=== PATIENT | female | born 1950 | race African-American/Black ===

== ENCOUNTER 2018-03-09 19:26 | Emergency (ER) | payer MEDICARE, OTHER ==
[~2018-03-09] VITALS: Ht 152.4 cm; Wt 85.7 kg
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
[2018-03-09 19:44] VITALS: BP 118/77
[2018-03-09] MEDS ORDERED: OXYC-323 PO (19:59)
[2018-03-09] MEDS ORDERED: oxyCODONE/APAP 5/325 1 TAB TABLET PO ONE (20:00)
[2018-03-09] MEDS ORDERED: TETANUS AND DIPHTHERIA TOX/PF 0.5 ML VIAL. VAX IM ONE (20:00)
== END 2018-03-09 20:15 | disposition home or self-care (01) ==
LOC: ER 19:26
DX: S50.311A Abrasion of right elbow, initial encounter (principal); F41.9 Anxiety disorder, unspecified; J44.9 Chronic obstructive pulmonary disease, unspecified; F32.9 Major depressive disorder, single episode, unspecified; F17.210 Nicotine dependence, cigarettes, uncomplicated; Z76.0 Encounter for issue of repeat prescription; W01.198A Fall on same level from slipping, tripping and stumbling with subsequent striking against other object, initial encounter; Y93.89 Activity, other specified; Y92.89 Other specified places as the place of occurrence of the external cause; Y99.8 Other external cause status
CPT/HCPCS: 90471; 90714; 99283-25

== ENCOUNTER → 2018-04-02 | Outpatient (CLI) | payer MEDICARE, OTHER ==
[2018-03-09 19:44] VITALS: BP 118/77
[~2018-04-02] MED LIST: OXYC-323 PO
--- NOTE | 2018-04-02 15:09 | RAD ---
3 views of the right fifth finger for history of injury, fracture. FINDINGS: There is a fracture dislocation of the fifth proximal interphalangeal joint, with anterior displacement and foreshortening of the middle phalanx. Dorsal avulsion fragment of the middle phalanx is displaced dorsally. IMPRESSION: 1. Fracture dislocation of the fifth proximal interphalangeal joint as described Electronically signed by: Bon Cornelius MD (04/02/2018 3:06 PM) [id number]
== END | disposition home or self-care (01) ==
LOC: RAD 12:03
PROVIDERS: ATTEND General Practice
DX: S62.626A Displaced fracture of middle phalanx of right little finger, initial encounter for closed fracture (principal); X58.XXXA Exposure to other specified factors, initial encounter; Y93.89 Activity, other specified; Y92.89 Other specified places as the place of occurrence of the external cause; Y99.8 Other external cause status
CPT/HCPCS: 73140

== ENCOUNTER 2018-08-25 05:10 | Emergency (ER) | payer OTHER ==
[~2018-08-25] VITALS: Ht 157.5 cm; Wt 79.4 kg
[~2018-08-25 05:10] MED LIST changes: -OXYC-323 PO; +OXYC1TAB15 PO
[2018-08-25 05:22] VITALS: BP 109/61
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
[2018-08-25] MEDS ORDERED: KETOROLAC TROMETHAMINE 0.5% OPHTH SOLUTION 3ML BOTTLE. OU ONE (05:45)
[2018-08-25] MEDS ORDERED: ERYTHROMYCIN 0.5% OPHTH OINTMENT 1GM TUBE. OU ONE (05:45)
[2018-08-25] MEDS ORDERED: HYDROcodon/IBUPROFEN 7.5/200MG 1 TAB TABLET PO ONE (05:45)
[2018-08-25] MEDS ORDERED: FLUORESCEIN 1MG EYE STRIP. OU ONE (05:45)
[2018-08-25] MEDS ORDERED: TETRACAINE 0.5% OPHTH SOLUTION 4ML BOTTLE. OU ONE (05:45)
[2018-08-25] MEDS ORDERED: DIPHTH,PERTUSS(ACELL),TET TOX 0.5 ML DISP.SYRIN. VAX IM ONE (05:45)
[2018-08-25] MEDS ORDERED: KETOROLAC 30 MG/ML VIAL. IM ONE (06:00)
[2018-08-25] MEDS ORDERED: ORPHENADRINE CITRATE 60 MG/2 ML VIAL. IM ONE (06:00)
== END 2018-08-25 06:58 | disposition home or self-care (01) ==
LOC: ER 05:10
DX: G89.29 Other chronic pain (principal); M54.89 Other dorsalgia; H54.62 Unqualified visual loss, left eye, normal vision right eye; F41.9 Anxiety disorder, unspecified; J44.9 Chronic obstructive pulmonary disease, unspecified; F17.210 Nicotine dependence, cigarettes, uncomplicated
CPT/HCPCS: 96372; 99284; J1885; J2360

== ENCOUNTER 2018-09-22 01:11 | Emergency (ER) | payer OTHER ==
[~2018-09-22] VITALS: Ht 157.5 cm; Wt 79.4 kg
[2018-09-22 01:11] VITALS: BP 109/61
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
== END 2018-09-22 01:48 | disposition home or self-care (01) ==
LOC: ER 01:11
DX: G89.29 Other chronic pain (principal); M54.89 Other dorsalgia; F41.9 Anxiety disorder, unspecified; J44.9 Chronic obstructive pulmonary disease, unspecified; Z76.5 Malingerer [conscious simulation]; G43.909 Migraine, unspecified, not intractable, without status migrainosus; F17.210 Nicotine dependence, cigarettes, uncomplicated
CPT/HCPCS: 99284

== ENCOUNTER 2018-12-05 14:44 | Emergency (ER) | payer OTHER ==
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
--- NOTE | 2018-12-05 15:54 | RAD ---
LUMBAR SPINE 2-3V History: Fall Comparison: October 28, 2018 Findings: 3 views lumbar spine are submitted. There is again mild superior lumbar dextroscoliosis. Lumbar vertebral body stature and AP alignment are similar. There is facet degenerative change greater inferiorly of the lumbar spine. There is mild degenerative disc disease at L5-S1. No acute osseous abnormality is identified by radiographs. Impression: 1. No acute osseous abnormality is identified by radiographs. Electronically signed by: Nader Sauceda MD (12/05/2018 3:51 PM) [id number]
--- NOTE | 2018-12-05 15:56 | RAD ---
THORACIC SPINE 3V History: Fall Comparison: None. Findings: 3 views of the thoracic spine are submitted. There is superior compression deformity of thoracic vertebral bodies likely T6, T5, T4 and questionably of the inferior aspect of T3. There is accentuation of thoracic kyphosis. Impression: 1. There is multilevel mid thoracic compression deformity. There are no previous exams for change, could be more recent. Electronically signed by: Nader Sauceda MD (12/05/2018 3:53 PM) [id number]
--- NOTE | 2018-12-05 16:37 | RAD ---
CT THORACIC SPINE WO CONTRAST Indication: Compression deformity on x-ray, fall Technique: Noncontrast CT imaging was performed of the thoracic spine, multiplanar reconstruction images submitted. One or more of the following individualized dose reduction techniques were utilized for this examination: 1. Automated exposure control 2. Adjustment of the mA and/or kV according to patient size 3. Use of iterative reconstruction technique. Comparison: Radiographs the same day Findings: There is compression deformity greater superiorly of T4 and T5, minimally superiorly of T6. There is no osseous retropulsion at these levels. There is also degree of mild superior endplate concavity of T12 and very minimally superiorly of T3. There is large superior Schmorl's node of L1, also likely of L2 poorly included. There is eenn-[id number] thoracic levoscoliosis. There is multilevel thoracic degenerative disc disease, some variable back disc disease greatest T5-T6 through T10-11. There are very minimal disc osteophyte complexes T6-7 through T9-10. There is multilevel posterior epidural lipomatosis. There is accentuation of thoracic kyphosis centered near T4. There is moderate to severe narrowing of the right T6-7 neural foramen by osteophytes. There is moderate narrowing of the right T10-11 neural foramen in part from facet degenerative change. There is also qpeh-nd-dkzbetvr narrowing of the left T11-12 neural foramen in part from facet into change. There is some reticular density of the visualized right lung, possibly component of fibrotic change. IMPRESSION: 1. There is compression deformity greatest superiorly of T4 and T5 and to lesser degree at T6, also mild superior endplate concavity of T12 and T3. There is also large superior Schmorl's node of L1 and probably of L2 poorly evaluated. Chronicity is uncertain, better characterized with MRI if clinically needed. There is multilevel thoracic degenerative disc disease. There is some variable thoracic neural foramina compromise. There is thoracic levoscoliosis. Electronically signed by: Nader Sauceda MD (12/05/2018 4:34 PM) [facility]
[2018-12-05] MEDS ORDERED: oxyCODONE/APAP 7.5/325 1 TAB TABLET PO ONE (17:00)
[2018-12-05] MEDS ORDERED: OXYC1TAB19 PO (17:20)
[2018-12-05 17:30] VITALS: BP 131/60
== END 2018-12-05 17:25 | disposition home or self-care (01) ==
LOC: ER 14:44
DX: S22.048A Other fracture of fourth thoracic vertebra, initial encounter for closed fracture (principal); S22.058A Other fracture of T5-T6 vertebra, initial encounter for closed fracture; M54.5 Low back pain; F41.9 Anxiety disorder, unspecified; J44.9 Chronic obstructive pulmonary disease, unspecified; F32.9 Major depressive disorder, single episode, unspecified; G43.909 Migraine, unspecified, not intractable, without status migrainosus; F17.210 Nicotine dependence, cigarettes, uncomplicated; W01.0XXA Fall on same level from slipping, tripping and stumbling without subsequent striking against object, initial encounter; Y93.89 Activity, other specified; Y92.098 Other place in other non-institutional residence as the place of occurrence of the external cause; Y99.8 Other external cause status
CPT/HCPCS: 72072; 72100; 72128; 99284-25

== ENCOUNTER 2018-12-29 03:47 | Emergency (ER) | payer OTHER ==
[~2018-12-29] VITALS: Ht 152.4 cm; Wt 77.1 kg
[~2018-12-29 03:47] MED LIST changes: +OXYC1TAB19 PO
[2018-12-29 03:58] VITALS: BP 110/58
[2018-12-29] MEDS ORDERED: IBUPROFEN 400 MG TABLET. PO ONE (04:15)
[2018-12-29] MEDS: IBUPROFEN 400 MG TABLET. PO ONE ×2 (04:15→04:17)
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
== END 2018-12-29 04:30 | disposition left against medical advice (07) ==
LOC: ER 03:47
DX: S80.212A Abrasion, left knee, initial encounter (principal); G89.29 Other chronic pain; M54.89 Other dorsalgia; Z76.5 Malingerer [conscious simulation]; J44.9 Chronic obstructive pulmonary disease, unspecified; G43.909 Migraine, unspecified, not intractable, without status migrainosus; F17.210 Nicotine dependence, cigarettes, uncomplicated; X58.XXXA Exposure to other specified factors, initial encounter; Y93.89 Activity, other specified; Y92.89 Other specified places as the place of occurrence of the external cause; Y99.8 Other external cause status
CPT/HCPCS: 99284

== ENCOUNTER 2019-01-27 13:41 | Emergency (ER) | payer OTHER ==
[~2019-01-27] VITALS: Ht 152.4 cm; Wt 70.3 kg
--- NOTE | 2019-01-27 13:55 | EKG ---
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
--- NOTE | 2019-01-27 14:10 | RAD ---
EXAM: CHEST 1 VIEW History: Shortness of breath COMPARISON: 02/16/2016 TECHNIQUE: Single portable radiograph of the chest FINDINGS: Low lung volumes and technique accentuates heart size and pulmonary vascularity. Minimal prominent appearing bilateral perihilar interstitial lung markings likely chronic interstitial changes. Minimal bibasilar lung airspace opacities. IMPRESSION: Minimal bibasilar lung airspace opacities likely atelectasis or infiltrates. Electronically signed by: Nas Meléndez MD (01/27/2019 2:07 PM) [email or web address]
[2019-01-27 14:17] LABS: BASO % 0 % (0-3); EOS # 0.1 x10^3/uL (0.0-0.7); EOS % 1 % (0-3); HEMATOCRIT 39.5 % (36.0-47.0); HEMOGLOBIN 12.9 g/dL (12.0-15.5); LYMPH # 3.5 x10^3/uL (1.0-4.8); LYMPH % 23 % (24-48); MEAN CORPUSCULAR HEMOGLOBIN 32 pg (25-35); MEAN CORPUSCULAR HGB CONC 33 g/dL (31-37); MEAN CORPUSCULAR VOLUME 98 fL (79-100); MONO # 0.9 x10^3/uL (0.0-1.1); MONO % 6 % (0-9); NEUT # 10.3 x10^3uL (1.8-7.7); NEUT % 69 % (31-73); PLATELET COUNT 340 x10^3/uL (140-400); RED BLOOD COUNT 4.04 x10^6/uL (3.50-5.40); RED CELL DISTRIBUTION WIDTH 13.8 % (11.5-14.5); WHITE BLOOD COUNT 14.9 x10^3/uL (4.0-11.0)
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
[2019-01-27 14:32] VITALS: BP 101/75
[2019-01-27 14:32] LABS: ALBUMIN 4.3 g/dL (3.4-5.0); ALBUMIN/GLOBULIN RATIO 1.3 (1.0-1.7); GFR 29.9; TOTAL BILIRUBIN 0.5 mg/dL (0.2-1.0); TOTAL PROTEIN 7.7 g/dL (6.4-8.2)
[2019-01-28] MEDS ORDERED: FLUO20CA8 PO (22:41)
[2019-01-28] MEDS ORDERED: OXYB10TA PO (22:41)
[2019-01-28] MEDS ORDERED: BACL10TA PO (22:41)
[2019-01-28] MEDS ORDERED: BUTA1TAB23 PO (22:41)
[2019-01-28] MEDS ORDERED: BUSP10TA PO (22:41)
[2019-01-28] MEDS ORDERED: MIRT7.5T8 PO (22:41)
[2019-01-28] MEDS ORDERED: CLON1TAB11 PO (22:41)
[2019-01-28] MEDS ORDERED: METO-247 PO (22:41)
[2019-01-28] MEDS ORDERED: HYDR-2759 PO (22:41)
[2019-01-28] MEDS ORDERED: RANI150T2 PO (22:41)
[2019-01-28] MEDS ORDERED: CYCL-331 PO (22:41)
== END 2019-01-27 15:21 | disposition home or self-care (01) ==
LOC: ER 13:41
DX: J44.9 Chronic obstructive pulmonary disease, unspecified (principal); G43.909 Migraine, unspecified, not intractable, without status migrainosus; F17.210 Nicotine dependence, cigarettes, uncomplicated
CPT/HCPCS: 36415; 71045; 80053; 83735; 85025; 93005; 99285

== ENCOUNTER 2019-01-27 17:05 | Observation (INO) | payer OTHER ==
[~2019-01-27] VITALS: Ht 152.4 cm; Wt 79.4 kg
[2019-01-27] MEDS ORDERED: IPRATRPIUM/ALBUTEROL 0.5/2.5MG 3 ML NEBU. NEB ONE (18:00)
[2019-01-27] MEDS ORDERED: IV NORMAL SALINE 1,000ML 1,000 ML IV ONE (18:45)
--- NOTE | 2019-01-27 18:52 | PHYS DOC ---
Past History Past Medical History: Bronchitis Past Surgical History: Appendectomy, Cholecystectomy, Hysterectomy Smoking: Cigarettes Alcohol Use: None Drug Use: None Adult General Chief Complaint Chief Complaint: MULTIPLE COMPLAINTS HPI HPI Patient is a 68 year old female who presents to the emergency department with altered mental status. The patient was seen in the emergency department earlier today with complaint of bronchitis. The patient received blood work and chest x-ray imaging at that time. The patient demanded that she leave the emergency department shortly after workup and was discharged with recommended follow-up with her primary doctor. The patient was noted to have pressured and tangential speech at that time. The patient called EMS after she made it to her family's home and is currently appearing sleepy. She is very poor historian at this time and is mumbling when asked questions. She is stating that she "just doesn't feel good." Review of Systems Review of Systems Constitutional: Fatigue, denies fever or chills [] Eyes: Denies change in visual acuity, redness, or eye pain [] HENT: Denies nasal congestion or sore throat [] Respiratory: Shortness of breath, wheezing[] Cardiovascular: Pleuritic chest pain, denies edema[] GI: Denies abdominal pain, nausea, vomiting, bloody stools or diarrhea [] : Denies dysuria or hematuria [] Musculoskeletal: Denies back pain or joint pain [] Integument: Denies rash or skin lesions [] Neurologic: Denies headache, focal weakness or sensory changes [] All other systems were reviewed and found to be within normal limits, except as documented in this note. Current Medications Current Medications Current Medications Medications (Trade) Dose Ordered Sig/Shala Start Time Stop Time Status Last Admin Dose Admin Albuterol/ Ipratropium (Duoneb) 3 ml 1X ONCE 01/27/19 18:00 01/27/19 18:06 DC 01/27/19 18:00 3 ML Allergies Allergies Allergies Coded Allergies Type Severity Reaction Last Updated Verified No Known Drug Allergies 09/23/18 No Physical Exam Physical Exam Constitutional: Lethargic, vital signs stable, mumbles responses. [] HENT: Normocephalic, atraumatic, bilateral external ears normal, oropharynx moist, no oral exudates, nose normal. [] Eyes: PERRLA, EOMI, conjunctiva normal, no discharge. [] Neck: Normal range of motion, no tenderness, supple, no stridor. [] Cardiovascular: Tachycardia, regular rhythm, no murmur [] Lungs & Thorax: Expiratory wheezes bilaterally, mild prolonged expiration phase, no rales[] Abdomen: Bowel sounds normal, soft, no tenderness, no masses, no pulsatile masses. [] Skin: Warm, dry, no erythema, no rash. [] Back: No tenderness, no CVA tenderness. [] Extremities: No tenderness, no cyanosis, no clubbing, ROM intact, no edema. [] Neurologic: Alert and oriented X 3, normal motor function, normal sensory function, no focal deficits noted. [] Current Patient Data Vital Signs Vital Signs Date Time Temp Pulse Resp B/P (MAP) Pulse Ox O2 Delivery O2 Flow Rate FiO2 01/27/19 18:00 91 Room Air 01/27/19 17:13 100.0 95 22 Lab Results Current Medications Medications (Trade) Dose Ordered Sig/Shala Route PRN Reason Start Time Stop Time Status Last Admin Dose Admin Albuterol/ Ipratropium (Duoneb) 3 ml 1X ONCE NEB 01/27/19 18:00 01/27/19 18:06 DC 01/27/19 18:00 3 ML CBC and CMP were completed at previous visit earlier today. She noted to have white blood cell count of 14.9 and creatinine of 2.0. EKG EKG Not performed[] Radiology/Procedures Radiology/[place] [address] IMAGING REPORT Signed PATIENT: JOSSIE PAZ ACCOUNT: [id number] : 1950 LOCATION: ER AGE: 68 SEX: F EXAM STATUS: REG ER ORD. PHYSICIAN: WALESKA PRASAD MD REASON: soa PROCEDURE: CHEST AP ONLY EXAM: CHEST 1 VIEW History: Shortness of breath COMPARISON: 02/16/2016 TECHNIQUE: Single portable radiograph of the chest FINDINGS: Low lung volumes and technique accentuates heart size and pulmonary vascularity. Minimal prominent appearing bilateral perihilar interstitial lung markings likely chronic interstitial changes. Minimal bibasilar lung airspace opacities. IMPRESSION: Minimal bibasilar lung airspace opacities likely atelectasis or infiltrates. Electronically signed by: Nas Palomo MD (01/27/2019 2:07 PM) [id number] DICTATED AND SIGNED BY: NAS PALOMO MD DATE: 01/27/19 1407 CC: JUAN DUNCAN DO; WALESKA PRASAD MD ~ [] Course & Med Decision Making Course & Med Decision Making Pertinent Labs and Imaging studies reviewed. (See chart for details) Patient started on DuoNeb in the emergency department. The patient is displaying altered mental status compared to her previous visit earlier today. Clinical picture is concerning for potential metabolic disease. The patient's condition appears appropriate for admission for medical stabilization at this time. I spoke with Dr. Slaughter who accepted care of patient in hospital. At time of sign out, lactic acid and ABG results are pending. This will be followed up by Dr. Farris in the emergency department prior to patient's transport to the hospital. Dragon Disclaimer Dragon Disclaimer This electronic medical record was generated, in whole or in part, using a voice recognition dictation system. Departure Departure: Impression: Primary Impression: COPD exacerbation Additional Impression: Altered mental status Disposition: 01 HOME/RESIDENCE PRIOR TO ADM Admitting Physician: Eugene Slaughter Condition: GUARDED Referrals: JUAN DUNCAN DO (PCP) Problem Qualifiers Additional Impression: Altered mental status Altered mental status type: unspecified Qualified Codes: R41.82 - Altered mental status, unspecified WALESKA PRASAD MD Jan 27, 2019 18:52
[2019-01-27] MEDS ORDERED: ONDANSETRON PF 4 MG/2 ML VIAL. IV PRN (19:00)
[2019-01-27 19:06] LABS: BILIRUBIN,URINE NEG (NEG); CLARITY,URINE HAZY; COLOR,URINE YELLOW; GLUCOSE,URINE NEG (NEG); NITRITE,URINE NEG (NEG); UROBILINOGEN,URINE 0.2 mg/dL (0.2 mg/dL)
[2019-01-27 19:16] LABS: AMPHETAMINE/METHAMPHETAMINE NEG (NEG); BARBITURATES POS (NEG); BENZODIAZEPINES POS (NEG); CANNABINOIDS NEG (NEG); COCAINE NEG (NEG); METHADONE NEG (NEG); OPIATES POS (NEG); PHENCYCLIDINE NEG (NEG)
[2019-01-27 19:27] LABS: BGAS PH 7.31 (7.35-7.45)
[2019-01-27 20:33] VITALS: BP 121/80
[2019-01-27] MEDS: IPRATRPIUM/ALBUTEROL 0.5/2.5MG 3 ML NEBU. NEB SCH (20:37)
[2019-01-28] MEDS ORDERED: methylPREDNISolone SOD SUCC PF 125 MG/2 ML VIAL. IV SCH
[2019-01-28 04:29] VITALS: BP 134/76
[2019-01-28] MEDS ORDERED: ACETAMINOPHEN 325 MG TABLET PO PRN (04:45)
[2019-01-28] MEDS ORDERED: HALOPERIDOL LACT 5 MG/ML VIAL. IM PRN (05:15)
[2019-01-28] MEDS ORDERED: oxyCODONE/APAP 5/325 1 TAB TABLET PO PRN (05:15)
[2019-01-28] MEDS: IPRATRPIUM/ALBUTEROL 0.5/2.5MG 3 ML NEBU. NEB SCH (05:17)
[2019-01-28] MEDS ORDERED: LACTOBACILLUS RHAMNOSUS GG 1 CAPSULE. PO SCH (09:00)
[2019-01-28] MEDS ORDERED: METO-247 PO (22:41)
[2019-01-28] MEDS ORDERED: RANI150T2 PO (22:41)
[2019-01-28] MEDS ORDERED: FLUO20CA8 PO (22:41)
[2019-01-28] MEDS ORDERED: MIRT7.5T8 PO (22:41)
[2019-01-28] MEDS ORDERED: BACL10TA PO (22:41)
[2019-01-28] MEDS ORDERED: HYDR-2759 PO (22:41)
[2019-01-28] MEDS ORDERED: CYCL-331 PO (22:41)
[2019-01-28] MEDS ORDERED: CLON1TAB11 PO (22:41)
[2019-01-28] MEDS ORDERED: BUTA1TAB23 PO (22:41)
[2019-01-28] MEDS ORDERED: BUSP10TA PO (22:41)
[2019-01-28] MEDS ORDERED: OXYB10TA PO (22:41)
== END 2019-01-28 05:20 | disposition left against medical advice (07) ==
LOC: ER 17:05 → 1 SOUTH 18:42 → INTOOBSV 18:42
PROVIDERS: ADMIT Internal Medicine; ATTEND Internal Medicine
DX: J44.1 Chronic obstructive pulmonary disease with (acute) exacerbation (principal); R41.82 Altered mental status, unspecified; J40 Bronchitis, not specified as acute or chronic; Z87.891 Personal history of nicotine dependence; Z90.49 Acquired absence of other specified parts of digestive tract; Z90.710 Acquired absence of both cervix and uterus
CPT/HCPCS: 36415; 80307; 81003; 82803; 83605; 87040; 94640; 96361; 96365; 96375; 99284; 99285; G0378; G0379; J1956; J2930; J7620; J7030

== ENCOUNTER 2019-01-28 18:48 | Inpatient (IN) | payer OTHER ==
[~2019-01-28] VITALS: Ht 152.4 cm; Wt 79.4 kg
[2019-01-28] MEDS ORDERED: IV NORMAL SALINE 1,000ML 1,000 ML IV ONE (19:00)
[2019-01-28 19:31] LABS: BASO # 0.1 x10^3/uL (0.0-0.2); BASO % 1 % (0-3); EOS % 0 % (0-3); HEMATOCRIT 37.5 % (36.0-47.0); HEMOGLOBIN 12.2 g/dL (12.0-15.5); LYMPH # 3.1 x10^3/uL (1.0-4.8); LYMPH % 27 % (24-48); MEAN CORPUSCULAR HEMOGLOBIN 32 pg (25-35); MEAN CORPUSCULAR HGB CONC 32 g/dL (31-37); MEAN CORPUSCULAR VOLUME 98 fL (79-100); MONO % 8 % (0-9); NEUT # 7.5 x10^3uL (1.8-7.7); NEUT % 64 % (31-73); PLATELET COUNT 313 x10^3/uL (140-400); RED BLOOD COUNT 3.82 x10^6/uL (3.50-5.40); RED CELL DISTRIBUTION WIDTH 13.9 % (11.5-14.5); WHITE BLOOD COUNT 11.6 x10^3/uL (4.0-11.0)
[2019-01-28 19:42] LABS: ALBUMIN 4.1 g/dL (3.4-5.0); ALBUMIN/GLOBULIN RATIO 1.1 (1.0-1.7); CREATININE 1.5 mg/dL (0.6-1.0); GFR 41.7; MAGNESIUM 2.4 mg/dL (1.8-2.4); POTASSIUM 4.1 mmol/L (3.5-5.1); TOTAL BILIRUBIN 0.5 mg/dL (0.2-1.0); TOTAL PROTEIN 7.9 g/dL (6.4-8.2)
[2019-01-28 20:18] LABS: BARBITURATES POS (NEG); BENZODIAZEPINES POS (NEG); CANNABINOIDS NEG (NEG); COCAINE NEG (NEG); METHADONE NEG (NEG); OPIATES POS (NEG); PHENCYCLIDINE NEG (NEG)
[2019-01-28 20:21] LABS: BACTERIA,URINE MANY /HPF (0-FEW); BILIRUBIN,URINE NEG (NEG); CLARITY,URINE CLEAR; COLOR,URINE YELLOW; GLUCOSE,URINE NEG (NEG); NITRITE,URINE POS (NEG); RBC,URINE OCC /HPF (0-2); SQUAMOUS EPITHELIAL CELL,UR OCC /LPF; UROBILINOGEN,URINE 0.2 mg/dL (0.2 mg/dL)
[2019-01-28 20:26] LABS: AMPHETAMINE/METHAMPHETAMINE NEG (NEG)
[2019-01-28] MEDS ORDERED: cefTRIAXone SODIUM 1 GM VIAL ONE (20:54)
[2019-01-28] MEDS ORDERED: IV NORMAL SALINE 50ML 50 ML ONE (20:54)
[2019-01-28] MEDS ORDERED: NALOXONE 0.4 MG/ML VIAL. IV ONE (21:30)
[2019-01-28] MEDS ORDERED: IV NORMAL SALINE 1,000ML 1,000 ML IV SCH (21:41)
--- NOTE | 2019-01-28 21:41 | PHYS DOC ---
Past History Past Medical History: Bronchitis Past Surgical History: Appendectomy, Cholecystectomy, Hysterectomy Smoking: Cigarettes Alcohol Use: None Drug Use: None Adult General Chief Complaint Chief Complaint: ALTERED MENTAL STATUS HPI HPI Patient is a 68-year-old female who presents with report of mental status change. Patient had been incarcerated earlier today for disorderly conduct and reportedly had made [place] but police had reported to EMS that a ship was unstable on her feet and unable to walk unassisted. They also indicate that she was quite confused. Upon patient released from correction, they called EMS and EMS transported patient to emergency room. Unable to obtain additional history from patient due to altered mental state.[] Review of Systems Review of Systems Constitutional: No reported fever[] Respiratory: No apparent shortness of breath [] Cardiovascular: No additional information not addressed in HPI [] GI: No report of vomiting or diarrhea [] Neurologic: Positive mental status changes [] Unable to fully evaluate review of systems due to altered mental state. Current Medications Current Medications Current Medications Medications (Trade) Dose Ordered Sig/Shala Start Time Stop Time Status Last Admin Dose Admin Ceftriaxone Sodium 1 gm/ Sodium Chloride 50 ml @ 100 mls/hr 1X ONCE 01/28/19 21:00 01/28/19 21:29 DC 01/28/19 20:57 100 MLS/HR Ceftriaxone Sodium (Rocephin) 1 gm STK-MED ONCE 01/28/19 20:54 01/28/19 20:54 DC Naloxone HCl (Narcan) 0.8 mg 1X ONCE 01/28/19 21:30 01/28/19 21:31 DC 01/28/19 21:24 0.8 MG Sodium Chloride 50 ml @ As Directed STK-MED ONCE 01/28/19 20:54 01/28/19 20:54 DC Allergies Allergies Allergies Coded Allergies Type Severity Reaction Last Updated Verified No Known Drug Allergies 09/23/18 No Physical Exam Physical Exam Constitutional: Well developed, well nourished, no acute distress, non-toxic appearance. [] HENT: Normocephalic, atraumatic, bilateral external ears normal, oropharynx dry, no oral exudates, nose normal. [] Eyes: PERRLA, EOMI, conjunctiva normal, no discharge. [] Neck: Normal range of motion, no tenderness, supple, no stridor. [] Cardiovascular: Regular rate and rhythm[] Lungs & Thorax: Bilateral breath sounds clear to auscultation [] Abdomen: Bowel sounds normal, soft, no tenderness. [] Skin: Warm, dry, no erythema, no rash. [] Extremities: No tenderness, no cyanosis, no clubbing, ROM intact. [] Neurologic: Somnolent but easily arousable, disoriented to place and time, no obvious focal deficits noted. [] Current Patient Data Vital Signs Vital Signs Date Time Temp Pulse Resp B/P (MAP) Pulse Ox O2 Delivery O2 Flow Rate FiO2 01/28/19 21:22 72 18 123/81 (95) 98 Room Air 01/28/19 18:56 98.4 Lab Results Laboratory Tests Test 01/28/19 19:14 01/28/19 19:30 White Blood Count 11.6 x10^3/uL (4.0-11.0) H Red Blood Count 3.82 x10^6/uL (3.50-5.40) Hemoglobin 12.2 g/dL (12.0-15.5) Hematocrit 37.5 % (36.0-47.0) Mean Corpuscular Volume 98 fL (79-100) Mean Corpuscular Hemoglobin 32 pg (25-35) Mean Corpuscular Hemoglobin Concent 32 g/dL (31-37) Red Cell Distribution Width 13.9 % (11.5-14.5) Platelet Count 313 x10^3/uL (140-400) Neutrophils (%) (Auto) 64 % (31-73) Lymphocytes (%) (Auto) 27 % (24-48) Monocytes (%) (Auto) 8 % (0-9) Eosinophils (%) (Auto) 0 % (0-3) Basophils (%) (Auto) 1 % (0-3) Neutrophils # (Auto) 7.5 x10^3uL (1.8-7.7) Lymphocytes # (Auto) 3.1 x10^3/uL (1.0-4.8) Monocytes # (Auto) 1.0 x10^3/uL (0.0-1.1) Eosinophils # (Auto) 0.0 x10^3/uL (0.0-0.7) Basophils # (Auto) 0.1 x10^3/uL (0.0-0.2) Sodium Level 143 mmol/L (136-145) Potassium Level 4.1 mmol/L (3.5-5.1) Chloride Level 109 mmol/L (98-107) H Carbon Dioxide Level 20 mmol/L (21-32) L Anion Gap 14 (6-14) Blood Urea Nitrogen 30 mg/dL (7-20) H Creatinine 1.5 mg/dL (0.6-1.0) H Estimated GFR (Cockcroft-Gault) 41.7 BUN/Creatinine Ratio 20 (6-20) Glucose Level 77 mg/dL (70-99) Calcium Level 9.0 mg/dL (8.5-10.1) Magnesium Level 2.4 mg/dL (1.8-2.4) Total Bilirubin 0.5 mg/dL (0.2-1.0) Aspartate Amino Transferase (AST) 35 U/L (15-37) Alanine Aminotransferase (ALT) 38 U/L (14-59) Alkaline Phosphatase 138 U/L (46-116) H Ammonia < 10 mcmol/L (11-34) L Total Protein 7.9 g/dL (6.4-8.2) Albumin 4.1 g/dL (3.4-5.0) Albumin/Globulin Ratio 1.1 (1.0-1.7) Urine Collection Type U cath Urine Color Yellow Urine Clarity Clear Urine pH 5.0 Urine Specific [place] 1.025 Urine Protein Trace (NEG-TRACE) Urine Glucose (UA) Neg mg/dL (NEG) Urine Ketones (Stick) 40 mg/dL (NEG) Urine Blood Trace (NEG) Urine Nitrite Pos (NEG) Urine Bilirubin Neg (NEG) Urine Urobilinogen Dipstick 0.2 mg/dL (0.2 mg/dL) Urine Leukocyte Esterase Neg (NEG) Urine RBC Occ /HPF (0-2) Urine WBC 1-4 /HPF (0-4) Urine Squamous Epithelial Cells Occ /LPF Urine Bacteria Many /HPF (0-FEW) Urine Opiates Screen Pos (NEG) Urine Methadone Screen Neg (NEG) Urine Barbiturates Pos (NEG) Urine Phencyclidine Screen Neg (NEG) Urine Amphetamine/Methamphetamine Neg (NEG) Urine Benzodiazepines Screen Pos (NEG) Urine Cocaine Screen Neg (NEG) Urine Cannabinoids Screen Neg (NEG) Urine Ethyl Alcohol Neg (NEG) EKG EKG [] Radiology/Procedures Radiology/Procedures [] Course & Med Decision Making Course & Med Decision Making Pertinent Labs and Imaging studies reviewed. (See chart for details) [] Dragon Disclaimer Dragon Disclaimer This electronic medical record was generated, in whole or in part, using a voice recognition dictation system. Departure Departure: Impression: Primary Impression: Altered mental status Additional Impression: UTI (urinary tract infection) Disposition: ADMITTED INPATIENT Admitting Physician: Eugene Slaughter Condition: GOOD Referrals: JUAN DUNCAN DO (PCP) Problem Qualifiers Primary Impression: Altered mental status Altered mental status type: unspecified Qualified Codes: R41.82 - Altered mental status, unspecified Additional Impression: UTI (urinary tract infection) Urinary tract infection type: site unspecified Hematuria presence: without hematuria Qualified Codes: N39.0 - Urinary tract infection, site not specified AMAYA ORTEZ Jr., DO Jan 28, 2019 21:41
[2019-01-28 22:41] VITALS: BP 128/77
[2019-01-28] MEDS ORDERED: RANI150T2 PO (22:41)
[2019-01-28] MEDS ORDERED: BACL10TA PO (22:41)
[2019-01-28] MEDS ORDERED: CYCL-331 PO (22:41)
[2019-01-28] MEDS ORDERED: METO-247 PO (22:41)
[2019-01-28] MEDS ORDERED: MIRT7.5T8 PO (22:41)
[2019-01-28] MEDS ORDERED: FLUO20CA8 PO (22:41)
[2019-01-28] MEDS ORDERED: BUSP10TA PO (22:41)
[2019-01-28] MEDS ORDERED: BUTA1TAB23 PO (22:41)
[2019-01-28] MEDS ORDERED: OXYB10TA PO (22:41)
[2019-01-28] MEDS ORDERED: HYDR-2759 PO (22:41)
[2019-01-28] MEDS ORDERED: CLON1TAB11 PO (22:41)
--- NOTE | 2019-01-29 01:23 | EKG ---
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
[2019-01-29] MEDS ORDERED: C.DIFF MED SCREEN BY RX. MC ONE (09:00)
== END 2019-01-29 02:00 | disposition left against medical advice (07) | DRG 690 ==
LOC: ER 18:48 → 1 SOUTH 21:35
PROVIDERS: ADMIT Internal Medicine; ATTEND Internal Medicine
DX: N39.0 Urinary tract infection, site not specified (principal); Z90.49 Acquired absence of other specified parts of digestive tract; Z90.710 Acquired absence of both cervix and uterus; Z87.891 Personal history of nicotine dependence; Z53.21 Procedure and treatment not carried out due to patient leaving prior to being seen by health care provider
CPT/HCPCS: 36415; 80053; 80307; 81001; 82140; 83735; 85025; 87086; 93005; 96361; 96365; 96375; J0696; J2310; 99285-25; J7030

== ENCOUNTER 2019-02-28 19:57 | Emergency (ER) | payer OTHER ==
[~2019-02-28] VITALS: Ht 152.4 cm; Wt 81.6 kg
[~2019-02-28 19:57] MED LIST changes: +BACL10TA PO; +BUSP10TA PO; +BUTA1TAB23 PO; +CLON1TAB11 PO; +CYCL-331 PO; +FLUO20CA8 PO; +HYDR-2759 PO; +METO-247 PO; +MIRT7.5T8 PO; +OXYB10TA2 PO; +RANI150T2 PO
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
[2019-02-28] MEDS ORDERED: IV RINGERS SOLUTION,LACTATED 1,000 ML IV ONE (20:15)
[2019-02-28 20:42] LABS: BASO # 0.2 x10^3/uL (0.0-0.2); BASO % 2 % (0-3); EOS # 0.1 x10^3/uL (0.0-0.7); EOS % 1 % (0-3); HEMATOCRIT 42.7 % (36.0-47.0); HEMOGLOBIN 13.9 g/dL (12.0-15.5); LYMPH # 3.1 x10^3/uL (1.0-4.8); LYMPH % 26 % (24-48); MEAN CORPUSCULAR HEMOGLOBIN 33 pg (25-35); MEAN CORPUSCULAR HGB CONC 33 g/dL (31-37); MEAN CORPUSCULAR VOLUME 100 fL (79-100); MONO # 0.6 x10^3/uL (0.0-1.1); MONO % 5 % (0-9); NEUT # 8.2 x10^3uL (1.8-7.7); NEUT % 67 % (31-73); PLATELET COUNT 319 x10^3/uL (140-400); RED BLOOD COUNT 4.29 x10^6/uL (3.50-5.40); RED CELL DISTRIBUTION WIDTH 14.2 % (11.5-14.5); WHITE BLOOD COUNT 12.2 x10^3/uL (4.0-11.0)
[2019-02-28 20:58] LABS: ALBUMIN 3.5 g/dL (3.4-5.0); CALCIUM 8.9 mg/dL (8.5-10.1); DIRECT BILIRUBIN 0.1 mg/dL (0.0-0.2); GFR 66.5; MAGNESIUM 2.1 mg/dL (1.8-2.4); POTASSIUM 4.6 mmol/L (3.5-5.1); TOTAL BILIRUBIN 0.2 mg/dL (0.2-1.0); TOTAL PROTEIN 7.1 g/dL (6.4-8.2)
--- NOTE | 2019-02-28 21:37 | RAD ---
CT scan of the head without contrast 02/28/2019 Clinical History: Mental status changes. Technique: Unenhanced, contiguous, 5 mm axial sections were obtained through the head. One or more of the following individualized dose reduction techniques were utilized for this study: 1. Automated exposure control. 2. Adjustment of the mA and/or kV according to patient size. 3. Use of iterative reconstruction technique. Findings: Comparison study is dated 10/28/2018. There is generalized parenchymal atrophy. Areas of decreased attenuation are seen within the periventricular and subcortical white matter of both cerebral hemispheres consistent with areas of small vessel ischemic disease. No acute parenchymal abnormality is seen. No extra-axial fluid collection is noted. No skull fracture is seen. Impression: No acute intracranial abnormality is seen. Electronically signed by: Lonnie Molina MD (02/28/2019 9:34 PM) [facility]
[2019-02-28 21:44] LABS: AMPHETAMINE/METHAMPHETAMINE NEG (NEG); BARBITURATES POS (NEG); BENZODIAZEPINES NEG (NEG); CANNABINOIDS NEG (NEG); COCAINE NEG (NEG); METHADONE NEG (NEG); OPIATES POS (NEG); PHENCYCLIDINE NEG (NEG)
[2019-02-28 21:46] LABS: SEDIMENTATION RATE 10 (0-25)
[2019-02-28 21:53] LABS: BILIRUBIN,URINE NEG (NEG); CLARITY,URINE CLEAR; COLOR,URINE YELLOW; GLUCOSE,URINE NEG (NEG); NITRITE,URINE NEG (NEG); RBC,URINE 0 /HPF (0-2); UROBILINOGEN,URINE 0.2 mg/dL (0.2 mg/dL)
--- NOTE | 2019-02-28 21:53 | EKG ---
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
[2019-02-28 21:54] LABS: BACTERIA,URINE 0 /HPF (0-FEW); SQUAMOUS EPITHELIAL CELL,UR FEW /LPF; WBC,URINE OCC /HPF (0-4)
[2019-02-28 22:55] VITALS: BP 141/90
--- NOTE | 2019-02-28 22:58 | RAD ---
PORTABLE CHEST 1V INDICATION: Mental status change. COMPARISON STUDY: 01/27/2019. FINDINGS: Lungs: Low lung volume. Prominent interstitial markings. No confluent consolidation. Pleura: No pleural effusion or pneumothorax. Heart and Mediastinum: Cardiomegaly. Tortuous thoracic aorta IMPRESSION: Low lung volume and prominent interstitial markings, likely subsegmental atelectasis and/or interstitial edema. No confluent consolidation. Electronically signed by: Nader Steiner MD (02/28/2019 10:55 PM) [facility]
== END 2019-02-28 23:00 | disposition home or self-care (01) ==
LOC: ER 19:57
DX: D72.829 Elevated white blood cell count, unspecified (principal); R74.8 Abnormal levels of other serum enzymes; R41.82 Altered mental status, unspecified; F20.9 Schizophrenia, unspecified; F19.10 Other psychoactive substance abuse, uncomplicated; R45.4 Irritability and anger; F41.9 Anxiety disorder, unspecified; M19.90 Unspecified osteoarthritis, unspecified site; M79.7 Fibromyalgia; F03.90 Unspecified dementia, unspecified severity, without behavioral disturbance, psychotic disturbance, mood disturbance, and anxiety; I10 Essential (primary) hypertension; F17.210 Nicotine dependence, cigarettes, uncomplicated; Z90.89 Acquired absence of other organs; Z90.710 Acquired absence of both cervix and uterus; Z90.49 Acquired absence of other specified parts of digestive tract
CPT/HCPCS: 36415; 70450; 71045; 72125; 80048; 80076; 80307; 81001; 82550; 83690; 83735; 83880; 84443; 84484; 85025; 85610; 85651; 85730; 87086; 93005; 96360; 99285; G0480; J7120

== ENCOUNTER 2019-04-14 13:47 | Inpatient (IN) | payer OTHER ==
[~2019-04-14] VITALS: Ht 152.4 cm; Wt 78.5 kg
--- NOTE | 2019-04-14 13:59 | PHYS DOC ---
Past History Past Medical History: Anxiety, Arthritis, Bronchitis, Dementia, Fibromyalgia, Hypertension, Schizophrenia Additional Past Medical Histor: CHRONIC BACK PAIN, DRUG SEEKING BEHAVIOR Past Surgical History: Appendectomy, Cholecystectomy, Hysterectomy Smoking: Cigarettes Alcohol Use: None Drug Use: None Adult General Chief Complaint Chief Complaint: MECHANICAL FALL HPI HPI Patient is a 68-year-old female who presents via EMS after reportedly falling and hitting the back for head. It is not known whether or not patient had loss of consciousness. Patient does complain of headache as well as neck and back pain after the fall. EMS does report that they had recently seen the patient and she has mental status change from this the couple of days ago. Patient denies any chest pain or shortness breath. She denies any nausea or vomiting. Additional history is somewhat limited as patient is poor historian.[] Review of Systems Review of Systems Constitutional: Denies fever or chills [] Respiratory: Denies cough or shortness of breath [] Cardiovascular: No additional information not addressed in HPI [] GI: Denies abdominal pain, nausea, vomiting or diarrhea [] Musculoskeletal: Complains of neck and back pain [] Neurologic: Complains of headache without focal weakness or sensory changes [] All other systems were reviewed and found to be within normal limits, except as documented in this note. Allergies Allergies Allergies Coded Allergies Type Severity Reaction Last Updated Verified No Known Drug Allergies 09/23/18 No Physical Exam Physical Exam Constitutional: Well developed, well nourished, no acute distress, non-toxic appearance. [] HENT: Normocephalic, atraumatic, bilateral external ears normal, oropharynx moist, no oral exudates, nose normal. [] Eyes: Left eye demonstrates sclerosis overlying pupil and majority of iris, EOMI. [] Neck: Normal range of motion, with mild suboccipital tenderness, supple. [] Cardiovascular: Regular rate and rhythm[] Lungs & Thorax: Bilateral breath sounds clear to auscultation [] Abdomen: Bowel sounds normal, soft, no tenderness. [] Skin: Warm, dry, no erythema, no rash. [] Extremities: No tenderness, no cyanosis, no clubbing, ROM intact. [] Neurologic: Awake and alert, no focal deficits noted. [] EKG EKG EKG demonstrates sinus rhythm with rate of 81.[] Radiology/Procedures Radiology/Procedures [] Course & Med Decision Making Course & Med Decision Making Pertinent Labs and Imaging studies reviewed. (See chart for details) [] Dragon Disclaimer Dragon Disclaimer This electronic medical record was generated, in whole or in part, using a voice recognition dictation system. Departure Departure: Impression: Primary Impression: Acute kidney injury Additional Impressions: Acute psychosis Hallucinations Disposition: 09 ADMITTED INPATIENT Admitting Physician: Eugene Slaughter Condition: IMPROVED Referrals: JUAN DUNCAN DO (PCP) Problem Qualifiers AMAYA ORTEZ Jr., DO Apr 14, 2019 13:59
[2019-04-14 14:16] LABS: BASO # 0.1 x10^3/uL (0.0-0.2); BASO % 1 % (0-3); EOS % 0 % (0-3); HEMATOCRIT 39.4 % (36.0-47.0); HEMOGLOBIN 13.2 g/dL (12.0-15.5); LYMPH # 3.7 x10^3/uL (1.0-4.8); LYMPH % 31 % (24-48); MEAN CORPUSCULAR HEMOGLOBIN 33 pg (25-35); MEAN CORPUSCULAR HGB CONC 34 g/dL (31-37); MEAN CORPUSCULAR VOLUME 99 fL (79-100); MONO # 1.2 x10^3/uL (0.0-1.1); MONO % 10 % (0-9); NEUT % 58 % (31-73); PLATELET COUNT 242 x10^3/uL (140-400); RED BLOOD COUNT 3.99 x10^6/uL (3.50-5.40); RED CELL DISTRIBUTION WIDTH 13.5 % (11.5-14.5)
--- NOTE | 2019-04-14 14:42 | RAD ---
PORTABLE CHEST 1V History: Altered mental status. Fall. Comparison: February 28, 2019 Findings: Low lung volumes. Diffuse interstitial thickening. No pleural effusion. Unchanged heart size. No pneumothorax. Lucency projecting over the upper abdomen Impression: 1. Low lung volumes. 2. Diffuse interstitial thickening, in the acute setting can be seen with pulmonary edema or atypical infection although a component of chronic interstitial changes is possible. 3. Lucency projecting over the upper abdomen, may present summation artifact. Recommend upright or lateral decubitus views of the abdomen to exclude pneumoperitoneum. Electronically signed by: Iker Dill DO (04/14/2019 2:40 PM) [facility]
--- NOTE | 2019-04-14 15:07 | RAD ---
CT HEAD AND CERVICAL SPINE WO History: Fall. Pain. Comparison: February 28, 2019. Technique: Noncontrast CT imaging was performed of the head and cervical spine. Coronal and sagittal reconstructions were performed. Exposure: One or more of the following individualized dose reduction techniques were utilized for this examination: 1. Automated exposure control 2. Adjustment of the mA and/or kV according to patient size 3. Use of iterative reconstruction technique. Findings: Head CT: No intracranial hemorrhage. No mass effect. No hydrocephalus. Extra-axial spaces are unremarkable. Mild brain parenchymal volume loss. Right lens replacement. Abnormal positioning of the left lens. Imaged paranasal sinuses and mastoid air cells are clear. Bilateral TMJ arthropathy. Cervical spine CT: Normal vertebral body height and alignment. No fracture. Mild multilevel degenerative disc disease most prominent C3-C4 and C4-C5. Multilevel moderate facet arthropathy most prominent left C3-C4 and C4-C5. Moderate C1-C2 degenerative changes. Biapical groundglass opacities partially imaged. Impression: Head CT: 1. No acute intracranial abnormality. 2. Abnormal position of the left lens, correlate for lens dislocation. Cervical spine CT: 1. No acute fractures with subluxation of the cervical spine. 2. Biapical ground glass opacities, may represent pulmonary edema or other infectious or inflammatory process. 3. Multilevel cervical spondylosis. Electronically signed by: Iker Dill DO (04/14/2019 3:04 PM) [facility]
[2019-04-14 15:44] LABS: ALBUMIN 4.5 g/dL (3.4-5.0); ALBUMIN/GLOBULIN RATIO 1.1 (1.0-1.7); CALCIUM 9.2 mg/dL (8.5-10.1); CREATININE 3.9 mg/dL (0.6-1.0); GFR 13.8; MAGNESIUM 2.5 mg/dL (1.8-2.4); POTASSIUM 3.8 mmol/L (3.5-5.1); TOTAL BILIRUBIN 0.6 mg/dL (0.2-1.0); TOTAL PROTEIN 8.7 g/dL (6.4-8.2)
[2019-04-14 15:50] LABS: CLARITY,URINE HAZY; COLOR,URINE AMBER; GLUCOSE,URINE NEG (NEG)
[2019-04-14 15:51] LABS: NITRITE,URINE NEG (NEG); UROBILINOGEN,URINE 0.2 mg/dL (0.2 mg/dL)
[2019-04-14 15:58] LABS: BARBITURATES POS (NEG); BENZODIAZEPINES POS (NEG); CANNABINOIDS NEG (NEG); COCAINE NEG (NEG); METHADONE NEG (NEG); OPIATES POS (NEG); PHENCYCLIDINE NEG (NEG)
[2019-04-14 15:59] LABS: BILIRUBIN,URINE NEG (NEG)
[2019-04-14 16:00] LABS: AMPHETAMINE/METHAMPHETAMINE NEG (NEG); BACTERIA,URINE 0 /HPF (0-FEW); HYALINE CASTS, URINE MOD /HPF; SQUAMOUS EPITHELIAL CELL,UR FEW /LPF
[2019-04-14] MEDS ORDERED: IV NORMAL SALINE 1,000ML 1,000 ML IV ONE (16:15)
--- NOTE | 2019-04-14 16:23 | EKG ---
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
--- NOTE | 2019-04-14 16:40 | RAD ---
Exam: CT abdomen and pelvis without contrast INDICATION: Altered mental status, fall TECHNIQUE: Sequential axial images through the abdomen and pelvis obtained without IV contrast. Sagittal and coronal reformatted images were reconstructed from the axial data and reviewed. Comparisons: None FINDINGS: Heart size is normal. No pericardial effusion. Strandy opacities are noted at the perihilar lungs bilaterally, likely representing atelectasis or scarring. No pleural effusion. Evaluation of solid organs is limited secondary to noncontrast technique. Liver, spleen, pancreas, and adrenals are unremarkable. Gallbladder is distended and appears thin-walled. No perinephric inflammation or hydronephrosis. No renal or ureteral calculi. Bladder is decompressed not well evaluated. Escobar balloon is noted within the bladder. Large and small bowel are unremarkable. Appendix is not identified. No free intra-abdominal air or fluid. No obstruction. Abdominal aorta has a normal course and caliber. No enlarged abdominal lymph nodes are identified. No suspicious osseous lesions or acute fractures. IMPRESSION: No free air. No acute process identified within the abdomen or pelvis. No sequela of acute traumatic injury identified. Exposure: One or more of the following in the visualized dose reduction techniques were utilized for this examination: 1. Automated exposure control 2. Adjustment of the MA and/or KV according to patient size 3. Use of iterative of reconstructive technique Electronically signed by: Prudencio Harris MD (04/14/2019 4:38 PM) [facility]
[2019-04-14] MEDS ORDERED: ACETAMINOPHEN 325 MG TABLET PO PRN (17:00)
[2019-04-14 18:50] VITALS: BP 118/75
[2019-04-14 19:00] VITALS: BP 113/78
[2019-04-14] MEDS ORDERED: METOCLOPRAMIDE HCL 10 MG/2 ML VIAL. IV PRN (19:15)
[2019-04-14] MEDS ORDERED: chlordiazePOXIDE HCL 25 MG CAPSULE PO PRN (19:15)
[2019-04-14] MEDS ORDERED: ONDANSETRON PF 4 MG/2 ML VIAL. IV PRN (19:15)
--- NOTE | 2019-04-14 19:15 | NUR ---
Pt admitted to ICU bed 3 from ER via [facility], accompanied by EMS and nursing staff. Pt transferred from [facility] to bed x3 assist. Admission assessment completed. VSS. Pt somewhat sedated from Ativan given in ER but awakens to touch and voice. Health history and home medications per old records. Pt with left EJ to neck, line flushed and IVF started per order. Pt refused flu vaccine. SCDs for VTE. POC reviewed with pt, reinforcement needed and no evidence of learning. Call light within reach. Pt resting is bed. Bed alarm on.
[2019-04-14] MEDS: IV NORMAL SALINE 1,000ML 1,000 ML IV SCH ×2 (19:20→23:40)
[2019-04-14 20:00] VITALS: BP 91/54
[2019-04-14 21:00] VITALS: BP 81/58
[2019-04-14 21:50] VITALS: BP 100/60
[2019-04-14 23:00] VITALS: BP 96/48
[2019-04-14] MEDS: diphenhydrAMINE 50 MG/ML VIAL IV PRN (23:35)
[2019-04-14] MEDS: HALOPERIDOL LACT 5 MG/ML VIAL. IM PRN (23:40)
--- NOTE | 2019-04-14 23:40 | NUR ---
Pt now awake and continually yelling out and thrashing around in bed. Pt is kicking and punching at the air and at staff members when they get near her bed. Pt is extremely agitated and argumentative. Pt appears to be hallucinating and talking to someone in her room that is not there. Pt yelling out "call my son" & "untie me....stop it...go away". Multiple attempts to explain, reorient and redirect pt. Pt resumed yelling out, demanding that we call her son. SALTY Macdonald given and Dr Slaughter called for further orders.
[2019-04-15] VITALS (21 sets, daily range): BP systolic 77–114; BP diastolic 37–86
[2019-04-15] MEDS ORDERED: UMEC1DIS IH (02:38)
[2019-04-15] MEDS ORDERED: FLUT200B IH (02:38)
[2019-04-15] MEDS: IV NORMAL SALINE 1,000ML 1,000 ML IV SCH ×2 (05:23→08:29)
[2019-04-15 06:56] LABS: BASO % 0 % (0-3); EOS % 0 % (0-3); HEMATOCRIT 35.8 % (36.0-47.0); HEMOGLOBIN 11.9 g/dL (12.0-15.5); LYMPH # 2.1 x10^3/uL (1.0-4.8); LYMPH % 20 % (24-48); MEAN CORPUSCULAR HEMOGLOBIN 33 pg (25-35); MEAN CORPUSCULAR HGB CONC 33 g/dL (31-37); MEAN CORPUSCULAR VOLUME 100 fL (79-100); MONO # 0.8 x10^3/uL (0.0-1.1); MONO % 8 % (0-9); NEUT # 7.4 x10^3uL (1.8-7.7); NEUT % 71 % (31-73); PLATELET COUNT 194 x10^3/uL (140-400); RED BLOOD COUNT 3.59 x10^6/uL (3.50-5.40); RED CELL DISTRIBUTION WIDTH 13.6 % (11.5-14.5); WHITE BLOOD COUNT 10.3 x10^3/uL (4.0-11.0)
[2019-04-15 07:02] LABS: CALCIUM 7.9 mg/dL (8.5-10.1); GFR 29.9; POTASSIUM 3.8 mmol/L (3.5-5.1)
[2019-04-15] MEDS: HALOPERIDOL LACT 5 MG/ML VIAL. IM PRN ×4 (07:12→22:50)
[2019-04-15] MEDS ORDERED: DEXTROSE 50% 25 GM / 50ML DISP.SYRIN. IV ONE ×3 (08:18→08:30)
--- NOTE | 2019-04-15 08:45 | NUR ---
Pt blood sugar on labs 60, rechecked finger stick-reading 52. 1 amp D50 given- fingerstick recheck 122.
--- NOTE | 2019-04-15 09:00 | NUR ---
0930 Pt awake alert to self and place, assisted pt with breakfast, ate approx 15%. Pt spoke more clearly and answered nurses questions, pt mitts removed. Pt was compliant when nurse ask her to not pull on lines and wires, after breakfast pt slept for approx 1.15 hr. 1130 Pt awoke confused and asking for a cig, also hollering out for neighbor lady. When asked where she was, she replied, "in my apartment!". Consistently trying to hit and kick nurses, in their efforts to console and reorient her. Continuously yelling out for the neighbor lady. Medications given for anxiety, and aggressive behavior-see EMAR. Pt trying to pull out sepulveda catheter-soft mitts reapplied. 1200 Pt resting quietly, with eyes closed, vital signs stable. Will monitor closely.
[2019-04-15] MEDS: diphenhydrAMINE 50 MG/ML VIAL IV PRN ×2 (11:33→17:20)
[2019-04-15] MEDS ORDERED: MORPHINE SULFATE 4 MG/ML DISP.SYRIN. IV PRN (17:00)
[2019-04-15] MEDS ORDERED: BUTALB/APAP/CAFEIN 50/325/40MG TABLET. PO PRN (17:00)
[2019-04-15] MEDS ORDERED: ZIPRASIDONE IM 20 MG VIAL. IM ONE (17:30)
--- NOTE | 2019-04-15 18:13 | HP ---
ADMIT DATE: 04/14/2019 HISTORY OF PRESENT ILLNESS: The patient is a 68-year-old -[place] female patient, who apparently was brought to the Emergency Room after reportedly falling and hitting the back of her head. Apparently, it was unknown whether she has lost consciousness. She did complain of headache as well as neck and back pain. The emergency medical service personnel does report that they had recently seen the patient and she has mental status change from a couple of days ago; however, she denied any chest pain or shortness of breath. Denied any nausea or vomiting. She was extensively investigated in the Emergency Room, had mild leukocytosis. She had acute kidney injury with a creatinine of 3.9 as well as impaired liver enzymes. She was started on IV fluid, was admitted with acute kidney injury. She has also had acute psychosis and hallucination. PAST MEDICAL HISTORY: Significant for hypertension, chronic bronchitis, generalized osteoarthritis, anxiety, dementia, fibromyalgia, schizophrenia. PAST SURGICAL HISTORY: Significant for appendectomy, cholecystectomy, hysterectomy. ALLERGIES: She has no known drug allergies. MEDICATIONS: She is currently on following medications: She is on Anoro Ellipta 1 inhalation twice a day, cyclobenzaprine 10 mg 3 times a day, baclofen 10 mg 3 times a day, metoprolol succinate 100 mg once a day, hydrocodone/APAP 5/325 one tablet every 6 hours. She is on butalbital, acetaminophen and caffeine 50/325/40 one tablet every 4 hours as needed for headache. Clonazepam 1 mg 3 times a day. She is on fluoxetine 20 mg once a day, mirtazapine 7.5 mg at bedtime, buspirone 10 mg daily, and fluticasone furoate for Arnuity Ellipta 1 inhalation once a day. She is on ranitidine 150 mg twice a day and oxybutynin chloride 10 mg daily. FAMILY HISTORY: Noncontributory. SOCIAL HISTORY: She apparently lives with her son and his girlfriend in an apartment. She continued to smoke. According to her, she does not drink alcohol or use recreational drugs. PHYSICAL EXAMINATION: On arrival, according to the ER physician, she is awake, alert, ____ back and neck pain. VITAL SIGNS: Showed heart rate of 85, blood pressure 96/50, temperature of 97.6, respiratory rate of 12-14, and oxygen saturation was 96% on room air. HEAD, EYES, EARS, NOSE AND THROAT: Showed normocephalic, atraumatic. NECK: Supple. HEART: Showed normal first and second heart sounds with no gallop, rub or murmur. CHEST: Clear to auscultation. No crepitation or rhonchi. ABDOMEN: Distended, soft, nontender. NEUROLOGIC: As apparently, she was very combative, punching nurses, she was given a total of 3 mg of Ativan, a liter of normal saline and was admitted to the ICU to continue with IV fluid at a rate of 150 mL per hour. LABORATORY DATA: Showed a serum sodium 138, potassium 3.8, chloride 102, bicarbonate 15, anion gap of 21, BUN 57, creatinine 3.9, estimated GFR was 14 mL per minute. Her glucose was 85, calcium was 9.2, magnesium 2.5. Total bilirubin is normal. AST, ALT, alkaline phosphatase slightly elevated. Her total protein was 8.7, albumin was 4.5. Her urine tox screen showed that she was positive for opiates, barbiturates, and benzodiazepine. Urinalysis was essentially unremarkable. The patient was admitted with acute kidney injury together with acute psychosis and hallucinations. PLAN: To continue with IV fluid. Monitor her lab works. DICTATION ENDS HERE JOSELINE ARCE MD DR: JEREMÍAS/toby JOB#: [id number] / [id number]
[2019-04-15] MEDS: FAMOTIDINE 20 MG TABLET PO SCH (19:34)
[2019-04-15] MEDS: MIRTAZAPINE 7.5 MG TABLET. PO SCH (19:34)
[2019-04-15] MEDS: OXYBUTYNIN CHLORIDE 5 MG TABLET PO SCH (19:34)
[2019-04-15] MEDS: CYCLOBENZAPRINE 10 MG TABLET. PO SCH (19:34)
[2019-04-15] MEDS: diphenhydrAMINE HCL 25 MG CAPSULE PO PRN (19:35)
[2019-04-15] MEDS: chlordiazePOXIDE HCL 25 MG CAPSULE PO PRN (19:35)
[2019-04-15] MEDS: BACLOFEN 10 MG TABLET PO SCH (19:35)
[2019-04-15] MEDS: clonazePAM 1 MG TABLET PO SCH (19:35)
[2019-04-15] MEDS: BUDESONIDE 0.5 MG/2 ML NEBU NEB SCH (20:51)
[2019-04-15] MEDS: IPRATRPIUM/ALBUTEROL 0.5/2.5MG 3 ML NEBU. NEB SCH (20:51)
[2019-04-15] MEDS ORDERED: [UNRECOGNIZED DRUG - OTHER] IH SCH (21:00)
[2019-04-16] VITALS (14 sets, daily range): BP systolic 91–146; BP diastolic 46–99
[2019-04-16] MEDS: HALOPERIDOL LACT 5 MG/ML VIAL. IM PRN ×2 (04:50→22:53)
--- NOTE | 2019-04-16 05:18 | PN ---
DATE: SUBJECTIVE: The patient was admitted last night with acute psychosis, hallucination and acute kidney injury. She apparently was extremely combative and required Ativan at the Emergency Room and while here, she has required Haldol, Ativan as well as diphenhydramine. She was continued on IV antibiotic and she is now more awake, alert, but again combative and confused. PHYSICAL EXAMINATION: GENERAL: When I examined her this afternoon, she looked well and was clearly in no apparent respiratory distress, pale, but no jaundice, cyanosis or thyromegaly. No jugular venous distention or limb edema. VITAL SIGNS: Her heart rate was 86, blood pressure was ____, temperature was 97.7, respiratory rate was 14 and oxygen saturation was 96%. HEAD, EYES, EARS, NOSE AND THROAT: Showed normocephalic, atraumatic. NECK: Supple. HEART: Showed normal first and second heart sounds with no gallop or murmur. CHEST: Clear to auscultation. No crepitation or rhonchi. ABDOMEN: Distended, soft, nontender. NEUROLOGIC: She is awake and alert. She is blind in her left eye. Her other cranial nerves intact. She moves her extremities without difficulty; however, she is very unsteady on her feet. LABORATORY DATA: Showed white cell count is 10,300, hemoglobin was 12, hematocrit 36, MCV 100, and platelet count 194,000. Her serum sodium was 144, potassium 3.8, chloride 109, bicarbonate 15, anion gap of 20, BUN 47, creatinine 2, estimated GFR was 30 mL per minute. Her glucose was 60, calcium was 7.9. ASSESSMENT: 1. Acute kidney injury. Her baseline creatinine on February 28 was only 1 mg. Her creatinine and BUN are trending down. 2. The patient has multiple other medical problems including hypertension, chronic back pain, chronic obstructive pulmonary disease, fibromyalgia, dementia and schizophrenia. PLAN: To continue with IV fluid, continue with all other medications for her aggressive behavior and combativeness. JOSELINE ARCE MD DR: JEREMÍAS/toby JOB#: [id number] / [id number]
[2019-04-16 06:26] LABS: HEMATOCRIT 34.2 % (36.0-47.0); HEMOGLOBIN 11.4 g/dL (12.0-15.5); RED BLOOD COUNT 3.45 x10^6/uL (3.50-5.40); RED CELL DISTRIBUTION WIDTH 13.6 % (11.5-14.5)
[2019-04-16 06:39] LABS: CALCIUM 7.6 mg/dL (8.5-10.1); CREATININE 0.9 mg/dL (0.6-1.0); GFR 75.1; POTASSIUM 3.3 mmol/L (3.5-5.1); TOTAL BILIRUBIN 0.6 mg/dL (0.2-1.0); TOTAL PROTEIN 6.1 g/dL (6.4-8.2)
[2019-04-16] MEDS: IPRATRPIUM/ALBUTEROL 0.5/2.5MG 3 ML NEBU. NEB SCH ×4 (08:00→20:00)
[2019-04-16] MEDS: BUDESONIDE 0.5 MG/2 ML NEBU NEB SCH (08:00)
[2019-04-16] MEDS: FLUoxetine HCL 20 MG CAPSULE PO SCH (08:34)
[2019-04-16] MEDS: busPIRone 10 MG TABLET. PO SCH (08:34)
[2019-04-16] MEDS: clonazePAM 1 MG TABLET PO SCH ×3 (08:34→20:29)
[2019-04-16] MEDS: BACLOFEN 10 MG TABLET PO SCH ×3 (08:36→20:29)
[2019-04-16] MEDS: OXYBUTYNIN CHLORIDE 5 MG TABLET PO SCH ×2 (08:36→20:29)
[2019-04-16] MEDS: METOPROLOL SUCC 24HR ER 50 MG TAB.ER.24H. PO SCH (08:36)
[2019-04-16] MEDS: CYCLOBENZAPRINE 10 MG TABLET. PO SCH ×3 (08:36→20:29)
[2019-04-16] MEDS: FAMOTIDINE 20 MG TABLET PO SCH ×2 (08:36→20:29)
[2019-04-16] MEDS ORDERED: FLUTICASONE FUROATE 200mcg/INH ELLIPTA INHALER. INH SCH (09:00)
[2019-04-16] MEDS ORDERED: BUDESONIDE 0.5 MG/2 ML NEBU NEB PRN (12:09)
[2019-04-16] MEDS ORDERED: ZIPRASIDONE IM 20 MG VIAL. IM ONE (13:15)
[2019-04-16] MEDS: POTASSIUM CL 20MEQ IN D5W 1,000 ML IV SCH ×2 (13:26→23:46)
[2019-04-16] MEDS: diphenhydrAMINE HCL 25 MG CAPSULE PO PRN (15:01)
--- NOTE | 2019-04-16 17:56 | NUR ---
This publicity writer attempted to contact Patient's Son Charlie via telephone on file multiple times this shift. Phone went straight to voicemail each time when called. This publicity writer left a voice message after voice mail confirmed that it was patient's son, requesting for patient's son to call back in regards to his mother.
[2019-04-16] MEDS: MIRTAZAPINE 7.5 MG TABLET. PO SCH (20:29)
[2019-04-16] MEDS: diphenhydrAMINE 50 MG/ML VIAL IV PRN (20:30)
[2019-04-16] MEDS: chlordiazePOXIDE HCL 25 MG CAPSULE PO PRN (20:30)
--- NOTE | 2019-04-16 21:30 | NUR ---
Pt has been very agitated, restless, yelling at someone that is not in her room. Pt is attempting to get out of bed and is kicking, swinging at staff members while attempting to do pt cares. Pt was given her 2100 meds and PRNs per orders. Will continue to monitor pt closely.
--- NOTE | 2019-04-16 23:00 | NUR ---
Pt continues to yell, cursing at people that are not in her room. She then carries on conversation with the people in her room. Pt turns herself sideways in the bed, throwing her legs over the bedrails. Pt trying to hit staff and cursing staff when they are repositioning pt in her for her safety. Pt required PRN dose of Haldol. Will continue to monitor pt.
--- NOTE | 2019-04-17 02:00 | PN ---
DATE: 04/16/2019 SUBJECTIVE: The patient is resting, slightly propped up in bed, in no apparent respiratory distress. She is extremely psychotic, hallucinating, restless, agitated; however, her kidney function has dramatically improved. Her creatinine came down from 3.9-0.9. Fortunately, her sodium has risen to 148, potassium is down to 3.3. OBJECTIVE: GENERAL: On examining her, she was somewhat pale, but no jaundice, cyanosis or thyromegaly. No jugular venous distention. No lower limb edema. VITAL SIGNS: Her heart rate was 86, blood pressure 107/54, temperature was 97.6, respiratory rate was 18 and oxygen saturation was 97%. HEAD, EYES, EARS, NOSE AND THROAT: Showed normocephalic, atraumatic. NECK: Supple. HEART: Showed normal first and second heart sounds. No gallop or murmur. CHEST: Clear to auscultation. No crepitation or rhonchi. ABDOMEN: Distended, soft, nontender. NEUROLOGIC: She is awake, alert, responding appropriately. All cranial nerves intact. She moves extremities without difficulty, although she is very unsteady on her feet. Her intake was 1475 and output was 450. LABORATORY DATA: As of this morning, her white cell count was 7000, hemoglobin 11.4, hematocrit 34, MCV 99 and platelet count of 191,000. Serum sodium 148, potassium 3.3, chloride 115, bicarbonate 19, anion gap of 14, BUN 22, creatinine was 0.9, estimated GFR was 75 mL per minute. Her glucose was 77, calcium was 7.6. Total bilirubin, AST, ALT, alkaline phosphatase was elevated. Total protein was 6.1, albumin was 3. ASSESSMENT: 1. Acute kidney injury, improving. Her creatinine is down to 0.9. 2. Hyponatremia. 3. Hypokalemia. 4. The patient has multiple other medical problems including: a. Hypertension. b. Chronic back pain. c. Chronic obstructive pulmonary disease. 5. She has dementia. 6. Schizophrenia with marked visual hallucination. My plan is to change her IV fluid to D5W with 20 mEq of potassium chloride. We will repeat her lab work tomorrow. We will also give Geodon for her psychotic behavior. JOSELINE ARCE MD DR: Delia JOB#: [id number] / [id number]
--- NOTE | 2019-04-17 02:07 | NUR ---
Pt has not slept at all this shift, pt continues to yell, attempting to get out of bed, swinging her legs over the bed rails repeatedly. Pt very restless, agitated. PRN Ativan and Benadryl given per orders.
[2019-04-17] MEDS: diphenhydrAMINE 50 MG/ML VIAL IV PRN (02:17)
[2019-04-17] MEDS: IPRATRPIUM/ALBUTEROL 0.5/2.5MG 3 ML NEBU. NEB SCH ×2 (02:30→09:28)
--- NOTE | 2019-04-17 02:31 | NUR ---
RN to make medication prn. Already changed one
--- NOTE | 2019-04-17 04:29 | NUR ---
Pt awake, requesting to use the bathroom. Pt was assisted to bedside commode x 2 people assist. Pt is more lucid at this time. Mitts were removed, pt states she will not pull things off/out. Pt very cooperative at this time.
[2019-04-17 04:53] VITALS: BP 155/92
[2019-04-17 06:47] LABS: CALCIUM 8.3 mg/dL (8.5-10.1); CREATININE 0.7 mg/dL (0.6-1.0); GFR 100.4; POTASSIUM 3.6 mmol/L (3.5-5.1)
--- NOTE | 2019-04-17 08:00 | NUR ---
Patient assisted to chair this morning with minimal assistance. Patient appears more alert and oriented this AM, patient does have garbled speech so it is hard to understand patient at times. Pt sat up and was able to eat breakfast, required verbal cues because patient would fall back asleep during meal. Medications given without difficulty. Behavioral Pediatrician strength strong bilaterally and able to stand with assistance. Patient denies complaints of pain or discomfort at this time. Family member called this am and went straight to voicemail, message left for family to call facility back.
[2019-04-17 08:23] VITALS: BP 163/98
[2019-04-17] MEDS: POTASSIUM CL 20MEQ IN D5W 1,000 ML IV SCH (08:25)
[2019-04-17] MEDS: FAMOTIDINE 20 MG TABLET PO SCH (08:26)
[2019-04-17] MEDS: OXYBUTYNIN CHLORIDE 5 MG TABLET PO SCH (08:26)
[2019-04-17] MEDS: FLUoxetine HCL 20 MG CAPSULE PO SCH (08:27)
[2019-04-17] MEDS: METOPROLOL SUCC 24HR ER 50 MG TAB.ER.24H. PO SCH (08:27)
[2019-04-17] MEDS: CYCLOBENZAPRINE 10 MG TABLET. PO SCH ×2 (09:00→14:26)
[2019-04-17] MEDS: BACLOFEN 10 MG TABLET PO SCH ×2 (09:00→14:26)
[2019-04-17] MEDS: clonazePAM 1 MG TABLET PO SCH ×2 (09:00→14:26)
[2019-04-17 12:07] VITALS: BP 129/86
[2019-04-17] MEDS: busPIRone 10 MG TABLET. PO SCH (12:14)
--- NOTE | 2019-04-17 13:17 | NUR ---
Spoke with son, Saurav, in regards to patients discharge plan. Son states that he wasnt aware patient was in hospital but can have his come pick patient up today if she is discharged. Spoke to son about patients safety, son stated that they are currently in the works on getting their mother into a place that is more controlled. Nurse updated son on patients condition and reason as to why patient was admitted to the hospital, explained once the physician is here that we will plan to discharge this afternoon. Family and patient understand plan of care. Patient requesting to shower at this time, assisted with staff member requiring standby assistance using a walker. Pt stated that she would like to get a cane to help her with ambulating, will notify nurse outreach case manager to see if this is possible.
[2019-04-17] MEDS ORDERED: IPRATRPIUM/ALBUTEROL 0.5/2.5MG 3 ML NEBU. NEB PRN (14:30)
[2019-04-17 17:13] VITALS: BP 159/100
--- NOTE | 2019-04-17 17:25 | NUR ---
Dr Slaughter here at this time, plan is to discharge home. Phone call placed to family 3x and voicemail left to inform that patient is being discharged. Patient aware and states that she does not need any prescriptions. Patient states that she has an appt Nov. - and will get more that day. Patient dressed and sitting in chair and supper at this time. Will wait for patient to finish eating supper and see if family will call back.
--- NOTE | 2019-04-17 17:55 | NUR ---
Discharge instructions given to patient and IV removed. Explained to patient about her hospital stay and why she was admitted to hospital, patient is lucid and appears to be back to baseline as of this morning. Patient ambulating independently but requests to have a cane or walker sent to home, will notify child welfare caseworker of assistance. Patient states that she has home health services at this time and that family is trying to get her placed somewhere since she is requiring extra help. Explained to patient that nurse has called and left voicemails on families phones, patient insist to go via [facility]. States that they know her and will work with her. Patient verbalized [facility] phone number and called at this time; stated that she will be going to [facility].
--- NOTE | 2019-04-17 18:19 | NUR ---
Patient ambulated independently using walker off unit with staff member at this time. Patient has belongings and discharge instructions; staff member sitting with patient in lobby awaiting for cab.
--- NOTE | 2019-04-17 18:54 | NUR ---
Patient discharged from facility at this time via cab. belongings left with patient.
--- NOTE | 2019-04-17 20:16 | DS ---
DATE OF DISCHARGE: 04/17/2019 HOSPITAL COURSE: The patient is a 68-year-old, -Thai female patient who was brought to the Emergency Department after reportedly falling and hitting the back of her head. Apparently, it was unknown whether she has lost consciousness. She did complain of headache as well as neck and back pain. She was extensively investigated in the Emergency Room, had mild leukocytosis. She had acute kidney injury with a creatinine of 3.9 as well as impaired liver enzymes. She was started on IV fluid, was admitted with acute kidney injury. Also had acute psychosis and hallucination for which she was seen by Dr. Aponte. She was very combative, agitated, restless, requiring treatment with Haldol. In fact, required even Geodon. Her kidney function has steadily improved. In fact, her creatinine on arrival was 3.9. Today, it came down to 0.7. She had other electrolyte abnormalities that have mostly normalized. Her liver enzymes were elevated. They are still slightly elevated, but trending down. She has been up and about, walked all the way to the bathroom, has fed herself and has generally been calm and quiet. A decision was made to discharge her home with her family. PHYSICAL EXAMINATION: GENERAL: When I examined her this afternoon, she was resting slightly propped up in bed, in no apparent respiratory distress. No pallor, jaundice, cyanosis, or thyromegaly. No jugular venous distention. No lower limb edema. VITAL SIGNS: Her heart rate was 84, blood pressure was 129/86, temperature was 97.5, respiratory rate 20, and oxygen saturation was 99%. HEAD, EYES, EARS, NOSE, AND THROAT: Normocephalic, atraumatic. NECK: Supple. HEART: Showed normal first and second heart sounds. No gallop or murmur. CHEST: Shows central trachea, equal bilateral chest expansion air entry, vesicular breath sounds. No crepitation or rhonchi. ABDOMEN: Distended, soft, nontender. NEUROLOGIC: She is definitely more awake, alert, responding appropriately. She is blind in her left eye, but otherwise all other cranial nerves are intact. EXTREMITIES: She moves extremities without difficulty. She ambulates without assistance or assistive devices. LABORATORY DATA: Her lab work showed that her white cell count was down to 7000, hemoglobin 11, hematocrit 34, MCV 99, and platelet count 291,000. Her chemistry showed a serum sodium 146, potassium 3.6, chloride 113, bicarbonate 23, anion gap of 10, BUN 7, creatinine 0.7, estimated GFR was 100 mL per minute. Her glucose 113, calcium was 8.3. DISCHARGE MEDICATIONS: She was discharged home to continue on baclofen 10 mg 3 times a day, buspirone 10 mg daily. She is on Fioricet 1 tablet daily for migraine headache, clonazepam 1 mg 3 times a day, fluoxetine 20 mg daily, fluticasone furoate 1 inhalation daily, hydrocodone/APAP 5/325 one tablet every 6 hours, metoprolol succinate 100 mg once a day, mirtazapine 7.5 mg at bedtime, oxybutynin 10 mg daily, ranitidine 150 mg p.o. b.i.d., and Anoro Ellipta 1 inhalation twice a day. FINAL DISCHARGE DIAGNOSES: 1. Acute kidney injury, improved with creatinine is down from 3.9-0.7. 2. Hyponatremia, resolved. Sodium is actually 146. 3. Hypokalemia, resolved. 4. The patient has multiple other medical problems including: A. Hypertension, seems to be reasonably controlled. B. Chronic back pain. C. Chronic obstructive pulmonary disease. 5. Dementia. 6. Schizophrenia with marked visual hallucination. JOSELINE ARCE MD DR: JEREMÍAS/toby JOB#: [id number] / [id number]
== END 2019-04-17 18:56 | disposition home or self-care (01) | DRG 683 ==
LOC: ER 13:47 → ICU 18:03
PROVIDERS: ADMIT Internal Medicine; ATTEND Internal Medicine
DX: N17.9 Acute kidney failure, unspecified (principal); E87.1 Hypo-osmolality and hyponatremia; D72.829 Elevated white blood cell count, unspecified; E87.6 Hypokalemia; F03.90 Unspecified dementia, unspecified severity, without behavioral disturbance, psychotic disturbance, mood disturbance, and anxiety; F20.9 Schizophrenia, unspecified; G89.29 Other chronic pain; I10 Essential (primary) hypertension; J44.9 Chronic obstructive pulmonary disease, unspecified; M15.9 Polyosteoarthritis, unspecified; M79.7 Fibromyalgia; Z87.891 Personal history of nicotine dependence; Z90.49 Acquired absence of other specified parts of digestive tract; Z90.710 Acquired absence of both cervix and uterus; F41.9 Anxiety disorder, unspecified; Z79.899 Other long term (current) drug therapy
CPT/HCPCS: 36415; 70450; 71045; 72125; 74176; 80048; 80053; 80307; 81001; 82947; 83735; 84484; 85025; 85027; 93005; 94640; 96361; 96374; 96376; J1200; J1630; J2060; J2270; J3486; J7042; Q0163; 99285-25; J7030

== ENCOUNTER → 2019-09-18 | Outpatient (CLI) | payer OTHER ==
[~2019-09-18] MED LIST changes: +FLUO20CA20 PO; -FLUO20CA8 PO; +FLUT200B IH; -OXYB10TA2 PO; +OXYB10TA26 PO; +UMEC1DIS IH
--- NOTE | 2019-09-18 15:56 | RAD ---
LUMBAR SPINE 2-3V DATE: 09/18/2019 12:00 AM INDICATION: Chronic low back pain COMPARISON: CT abdomen pelvis 04/06/2019. FINDINGS: Five non-rib bearing lumbar-type vertebral bodies are present. Bones/Alignment: No evidence of acute compression fracture. Schmorl's nodes along the superior endplates of T12, L1, and L2. There is no listhesis. Joints: Mild to moderate degenerative disc disease. Miscellaneous: Aortoiliac atherosclerotic disease. IMPRESSION: Mild to moderate lumbar spondylosis. Electronically signed by: Nader Steiner MD (09/18/2019 3:53 PM) [id number]
== END | disposition home or self-care (01) ==
LOC: DXRAD 15:32
PROVIDERS: ATTEND Family Medicine
DX: M47.816 Spondylosis without myelopathy or radiculopathy, lumbar region (principal); M51.36 Other intervertebral disc degeneration, lumbar region; M51.45 Schmorl's nodes, thoracolumbar region; I70.0 Atherosclerosis of aorta
CPT/HCPCS: 72100

== ENCOUNTER → 2019-10-24 | Outpatient (CLI) | payer OTHER ==
--- NOTE | 2019-10-24 09:47 | RAD ---
EXAM: Lumbar spine, 3 views. HISTORY: Pain. COMPARISON: 09/18/2019 FINDINGS: 3 views of the lumbar spine are obtained. There is mild S-shaped thoracolumbar scoliosis. There is no significant listhesis. No fracture is seen. There is multilevel endplate remodeling involving the lower thoracic spine. There is facet arthropathy predominantly at the lumbosacral junction. IMPRESSION: 1. Mild multilevel degenerative change. 2. No acute osseous finding. Electronically signed by: Karen Bejarano MD (10/24/2019 9:45 AM) [id number]
== END ==
LOC: DXRAD 09:23
PROVIDERS: ATTEND Family Medicine
DX: M47.817 Spondylosis without myelopathy or radiculopathy, lumbosacral region (principal); M41.85 Other forms of scoliosis, thoracolumbar region
CPT/HCPCS: 72100

== ENCOUNTER 2020-01-03 18:28 | Observation (INO) | payer OTHER ==
[~2020-01-03] VITALS: Ht 152.4 cm; Wt 81.8 kg
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
[2020-01-03] MEDS ORDERED: methylPREDNISolone SOD SUCC PF 125 MG/2 ML VIAL. IV ONE (19:00)
[2020-01-03] MEDS ORDERED: IPRATRPIUM/ALBUTEROL 0.5/2.5MG 3 ML NEBU. NEB ONE (19:00)
[2020-01-03 19:30] LABS: BASO # 0.2 x10^3/uL (0.0-0.2); BASO % 2 % (0-3); EOS # 0.2 x10^3/uL (0.0-0.7); EOS % 2 % (0-3); HEMATOCRIT 39.8 % (36.0-47.0); HEMOGLOBIN 13.2 g/dL (12.0-15.5); LYMPH # 3.6 x10^3/uL (1.0-4.8); LYMPH % 33 % (24-48); MEAN CORPUSCULAR HEMOGLOBIN 33 pg (25-35); MEAN CORPUSCULAR HGB CONC 33 g/dL (31-37); MEAN CORPUSCULAR VOLUME 99 fL (79-100); MONO # 0.3 x10^3/uL (0.0-1.1); MONO % 3 % (0-9); NEUT # 6.7 x10^3uL (1.8-7.7); NEUT % 60 % (31-73); PLATELET COUNT 223 x10^3/uL (140-400); RED BLOOD COUNT 4.01 x10^6/uL (3.50-5.40); RED CELL DISTRIBUTION WIDTH 14.9 % (11.5-14.5); WHITE BLOOD COUNT 11.1 x10^3/uL (4.0-11.0)
--- NOTE | 2020-01-03 19:41 | RAD ---
CHEST AP ONLY 01/03/2020 6:48 PM INDICATION: Wheezing COMPARISON: 04/06/2019 TECHNIQUE: Portable frontal view of the chest is provided. FINDINGS: The cardiomediastinal silhouette is similar in appearance. Perihilar mixed interstitial and alveolar airspace disease appears progressed since prior examination. No significant pleural effusions or pneumothorax. No suspicious osseous abnormality. IMPRESSION: Worsening. Hilar mixed interstitial and alveolar airspace disease. Consideration may be an for pulmonary edema versus multifocal infiltrates. Electronically signed by: Shannan Hernandez MD (01/03/2020 7:39 PM) [facility]
[2020-01-03 20:33] LABS: CALCIUM 8.9 mg/dL (8.5-10.1); CREATININE 1.5 mg/dL (0.6-1.0); GFR 41.5; POTASSIUM 3.5 mmol/L (3.5-5.1)
[2020-01-03 20:39] LABS: ALBUMIN 3.5 g/dL (3.4-5.0); ALBUMIN/GLOBULIN RATIO 0.8 (1.0-1.7); TOTAL BILIRUBIN 0.2 mg/dL (0.2-1.0); TOTAL PROTEIN 7.8 g/dL (6.4-8.2)
[2020-01-03] MEDS ORDERED: ONDANSETRON PF 4 MG/2 ML VIAL. IVP PRN (21:15)
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
[2020-01-03 22:18] VITALS: BP 114/72
[2020-01-03] MEDS: BUTALB/APAP/CAFEIN 50/325/40MG TABLET. PO PRN (22:58)
--- NOTE | 2020-01-04 01:19 | NUR ---
Pt woke up and vomited and coughed. Pt said she does this "sometimes at home when eating chicken." Pt disoriented to location and time. Reoriented and encouraged to rest. Will continue to monitor.
[2020-01-04] MEDS ORDERED: SUMA100T4 PO (03:38)
[2020-01-04] MEDS ORDERED: CIME400T PO (03:38)
[2020-01-04 05:50] VITALS: BP 141/95
[2020-01-04] MEDS: BUTALB/APAP/CAFEIN 50/325/40MG TABLET. PO PRN (06:13)
[2020-01-04] MEDS ORDERED: BUTALB/APAP/CAFEIN 50/325/40MG TABLET. PO PRN (13:45)
[2020-01-04] MEDS ORDERED: SUMATRIPTAN SUCCINATE PO SCH (13:45)
[2020-01-04] MEDS ORDERED: CYCLOBENZAPRINE 10 MG TABLET. PO SCH (14:00)
[2020-01-04] MEDS ORDERED: BACLOFEN 10 MG TABLET PO SCH (14:00)
[2020-01-04] MEDS ORDERED: clonazePAM 1 MG TABLET PO SCH (14:00)
--- NOTE | 2020-01-04 14:04 | DS ---
DATE OF DISCHARGE: 01/03/2020 HOSPITAL COURSE: The patient was sitting in her chair comfortably in no apparent distress. On questioning her, her main complaint was headache and depression. In fact the only thing she wants is her Percocet and/or the Fioricet for headache. When I examined her, she was awake, alert, was able to finish her sentence without any difficulty. She denied any chest pain or shortness of breath and expressed her desire to go home and stated that she will follow with her primary care physician. PHYSICAL EXAMINATION: GENERAL: When I examined her this afternoon, she looked well and was clearly in no apparent respiratory distress. There was no pallor, jaundice, cyanosis or thyromegaly. No jugular venous distention. No limb edema. VITAL SIGNS: Her heart rate was 71, blood pressure was 141/95, temperature 97.8, respiratory rate 20, and oxygen saturation was 96% on room air. HEAD, EYES, EARS, NOSE AND THROAT: Showed normocephalic, atraumatic. NECK: Supple. CHEST: I could not really appreciate any crepitation or rhonchi. HEART: Showed normal first and second heart sounds. No gallop or murmur. CHEST: Shows central trachea, equal bilateral expansion, air entry, vesicular sounds. I could not really appreciate any crepitation or rhonchi. ABDOMEN: Distended, soft, nontender. NEUROLOGIC: She is blind in her left eye, but otherwise all her cranial nerves are intact. She moves all extremities without difficulty. She ambulates without assistance or assistive devices. The patient was therefore discharged home and was discharged home to continue on all her medications. She was given a prescription for her Fioricet and was advised strongly to follow with her primary care physician. FINAL DISCHARGE DIAGNOSES: 1. Headache. 2. Depression. 3. Chronic obstructive pulmonary disease, gastroesophageal reflux disease. JOSELINE ARCE MD DR: JEREMÍAS/toby JOB#: [id number] / [id number]
[2020-01-04 14:14] LABS: BILIRUBIN,URINE NEG (NEG); CLARITY,URINE CLOUDY; COLOR,URINE YELLOW; GLUCOSE,URINE NEG (NEG)
[2020-01-04 14:15] LABS: BACTERIA,URINE MANY /HPF (0-FEW); NITRITE,URINE POS (NEG); SQUAMOUS EPITHELIAL CELL,UR MANY /LPF; UROBILINOGEN,URINE 0.2 mg/dL (0.2 mg/dL); WBC,URINE >40 /HPF (0-4)
--- NOTE | 2020-01-04 14:20 | NUR ---
PATIENT IS D/C HOME WITH SELF CARE. PATIENT IS STABLE AT TIME OF DISCHARGE. PATIENTS IV IS REMOVED. PATIENT IS GIVEN DISCHARGED AND FOLLOW UP INSTRUCTIONS. PATIENT IS GIVEN PRESCRIPTION FOR PERCOCET AND FIORICET. PATIENT IS ESCORTED OFF OF UNIT ACCOMPANIED BY STAFF.
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
[2020-01-04] MEDS ORDERED: [UNRECOGNIZED DRUG - OTHER] IH SCH (21:00)
[2020-01-04] MEDS ORDERED: NON FORMULARY ITEM (Ranitidine Hcl 150 MG) PO SCH (21:00)
[2020-01-04] MEDS ORDERED: MIRTAZAPINE 7.5 MG TABLET. PO SCH (21:00)
[2020-01-05] MEDS ORDERED: FLUoxetine HCL 20 MG CAPSULE PO SCH (09:00)
[2020-01-05] MEDS ORDERED: busPIRone 10 MG TABLET. PO SCH (09:00)
[2020-01-05] MEDS ORDERED: CIMETIDINE 400 MG PO SCH (09:00)
[2020-01-05] MEDS ORDERED: FLUTICASONE FUROATE IH SCH (09:00)
[2020-01-05] MEDS ORDERED: METOPROLOL SUCCINATE 100 MG PO SCH (09:00)
[2020-01-05] MEDS ORDERED: OXYBUTYNIN CHLORIDE 10 MG PO SCH (09:00)
== END 2020-01-04 14:20 | disposition home or self-care (01) ==
LOC: ER 18:28 → INTOOBSV 22:09 → 1 SOUTH 22:09 → OBSVTOIN 22:09
PROVIDERS: ADMIT Internal Medicine; ATTEND Internal Medicine
DX: R51 Headache (principal); J44.9 Chronic obstructive pulmonary disease, unspecified; F32.9 Major depressive disorder, single episode, unspecified; I10 Essential (primary) hypertension; M15.9 Polyosteoarthritis, unspecified; F03.90 Unspecified dementia, unspecified severity, without behavioral disturbance, psychotic disturbance, mood disturbance, and anxiety; M79.7 Fibromyalgia; F20.9 Schizophrenia, unspecified; K21.9 Gastro-esophageal reflux disease without esophagitis; F17.200 Nicotine dependence, unspecified, uncomplicated; Z90.710 Acquired absence of both cervix and uterus; Z79.899 Other long term (current) drug therapy
CPT/HCPCS: 36415; 71045; 80053; 81001; 83880; 85025; 87077; 87086; 87186; 94640; 96374; 96375; 96376; 99284; G0378; J2060; J2930; G0379

== ENCOUNTER 2020-01-26 13:17 | Emergency (ER) | payer OTHER ==
[~2020-01-26] VITALS: Ht 152.4 cm; Wt 80.5 kg
[~2020-01-26 13:17] MED LIST changes: +CIME400T PO; +SUMA100T4 PO
[2020-01-26] MEDS ORDERED: IV NORMAL SALINE 1,000ML 1,000 ML IV ONE (13:30)
[2020-01-26] MEDS ORDERED: KETOROLAC 15 MG/ML VIAL. IVP ONE (13:30)
[2020-01-26] MEDS ORDERED: FAMOTIDINE 20 MG/2 ML VIAL IVP ONE (13:30)
[2020-01-26] MEDS ORDERED: IOHEXOL 240 MG/ML 50ML VIAL. ONE (13:32)
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
[2020-01-26 14:19] LABS: BASO # 0.2 x10^3/uL (0.0-0.2); BASO % 2 % (0-3); EOS # 0.3 x10^3/uL (0.0-0.7); EOS % 2 % (0-3); HEMATOCRIT 37.3 % (36.0-47.0); HEMOGLOBIN 12.3 g/dL (12.0-15.5); LYMPH # 2.9 x10^3/uL (1.0-4.8); LYMPH % 24 % (24-48); MEAN CORPUSCULAR HEMOGLOBIN 32 pg (25-35); MEAN CORPUSCULAR HGB CONC 33 g/dL (31-37); MEAN CORPUSCULAR VOLUME 98 fL (79-100); MONO # 0.9 x10^3/uL (0.0-1.1); MONO % 7 % (0-9); NEUT # 7.7 x10^3uL (1.8-7.7); NEUT % 65 % (31-73); PLATELET COUNT 339 x10^3/uL (140-400); RED CELL DISTRIBUTION WIDTH 14.3 % (11.5-14.5); WHITE BLOOD COUNT 11.9 x10^3/uL (4.0-11.0)
[2020-01-26 14:25] LABS: CALCIUM 9.7 mg/dL (8.5-10.1); GFR 66.3
[2020-01-26] MEDS ORDERED: IOHEXOL 300 MG/ML 75 ML VIAL. IV ONE (14:30)
--- NOTE | 2020-01-26 14:38 | EKG ---
[address] [address] Test Date: 2020-01-26 Test Time: 13:50:20 Pat Name: JOSSIE PAZ Department: Room: Gender: F Spool Carrier: : 1950 Requested By: JADYN JONES Order Number: [id number] Reading MD: Measurements Intervals [place] Rate: 78 P: 30 LA: 232 QRS: -26 QRSD: 76 T: 23 QT: 386 QTc: 444 Interpretive Statements SINUS RHYTHM PROLONGED LA INTERVAL LEFTWARD AXIS ABNORMAL ECG RI6.02 No previous ECG available for comparison
[2020-01-26 14:41] LABS: ALBUMIN 2.9 g/dL (3.4-5.0); ALBUMIN/GLOBULIN RATIO 0.6 (1.0-1.7); TOTAL BILIRUBIN 0.4 mg/dL (0.2-1.0)
[2020-01-26 14:45] LABS: BILIRUBIN,URINE NEG (NEG); CLARITY,URINE CLOUDY; COLOR,URINE YELLOW; GLUCOSE,URINE NEG (NEG); NITRITE,URINE POS (NEG); UROBILINOGEN,URINE 0.2 mg/dL (0.2 mg/dL)
[2020-01-26 14:46] LABS: BACTERIA,URINE MANY /HPF (0-FEW); SQUAMOUS EPITHELIAL CELL,UR MOD /LPF; WBC,URINE >40 /HPF (0-4)
[2020-01-26 14:47] LABS: TRICHOMONAS,URINE PRESENT
--- NOTE | 2020-01-26 15:39 | RAD ---
CT abdomen pelvis with contrast Indication: Abdominal pain Technique: Postcontrast CT imaging was performed of the abdomen and pelvis, multiplanar reconstruction images submitted. Oral contrast was also given. One or more of the following individualized dose reduction techniques were utilized for this examination: 1. Automated exposure control 2. Adjustment of the mA and/or kV according to patient size 3. Use of iterative reconstruction technique. Comparison: 04/14/2019 Findings: There is some motion degradation. There is some coronary calcification. There is likely atelectasis at the visualized lung bases bilaterally, no pleural fluid. There is now prominent distention of the gallbladder, associated gallbladder wall thickening as well as adjacent hazy and strandy change. No calcified gallstone is identified. No new significant abnormality is identified of the liver, spleen, or pancreas. Both kidneys enhance, no hydronephrosis. There is some stool distention of the ascending colon measuring about 7.4 cm in caliber. Small bowel is not dilated. There is no significant free fluid or free air. Appendix is not confidently identified if still present. There is no adrenal nodularity. Both kidneys enhance, no hydronephrosis. There is mild dextroscoliosis centered near the thoracolumbar junction. There is multilevel thoracolumbar degenerative disc disease. There is superior endplate concavity of L2, L1, and T12 as seen previously. IMPRESSION: 1. There is prominent distention of the gallbladder with associated gallbladder wall thickening and adjacent inflammatory change, evidence of cholecystitis. 2. There is stool distention of the ascending colon. Electronically signed by: Nader Sauceda MD (01/26/2020 3:36 PM) [id number]
[2020-01-26] MEDS ORDERED: IV NORMAL SALINE 50ML 50 ML ONE (15:52)
[2020-01-26] MEDS ORDERED: cefTRIAXone SODIUM 1 GM VIAL ONE (15:53)
[2020-01-26 19:43] VITALS: BP 114/70
== END 2020-01-26 19:57 | disposition short-term general hospital (02) ==
LOC: ER 13:17
DX: K81.0 Acute cholecystitis (principal); N30.00 Acute cystitis without hematuria; A59.03 Trichomonal cystitis and urethritis; G89.29 Other chronic pain; J44.9 Chronic obstructive pulmonary disease, unspecified; I10 Essential (primary) hypertension; G43.909 Migraine, unspecified, not intractable, without status migrainosus; F17.210 Nicotine dependence, cigarettes, uncomplicated
CPT/HCPCS: 36415; 74177; 80053; 81001; 82553; 83605; 83690; 84484; 85025; 85610; 85730; 87086; 93005; 96361; 96365; 96367; 96375; 96376; 99285; J0696; J1885; J3010; J3490; J7030; Q9967; 87077; 87186; 96366

== ENCOUNTER 2020-02-27 11:35 | Emergency (ER) | payer MEDICARE, OTHER ==
[~2020-02-27] VITALS: Ht 152.4 cm; Wt 78.5 kg
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
[2020-02-27] MEDS ORDERED: BUTALB/APAP/CAFEIN 50/325/40MG TABLET. PO ONE (11:45)
[2020-02-27] MEDS ORDERED: IV NORMAL SALINE 1,000ML 1,000 ML IV ONE (11:45)
[2020-02-27] MEDS ORDERED: DEXAMETHASONE SOD PHOS 4 MG/ML VIAL. IVP ONE (11:45)
[2020-02-27] MEDS ORDERED: ONDANSETRON PF 4 MG/2 ML VIAL. IVP ONE (12:00)
[2020-02-27] MEDS ORDERED: FAMOTIDINE 20 MG/2 ML VIAL IVP ONE (12:00)
[2020-02-27 12:13] LABS: BASO # 0.1 x10^3/uL (0.0-0.2); BASO % 1 % (0-3); EOS # 0.1 x10^3/uL (0.0-0.7); EOS % 1 % (0-3); HEMATOCRIT 39.7 % (36.0-47.0); LYMPH # 2.8 x10^3/uL (1.0-4.8); LYMPH % 26 % (24-48); MEAN CORPUSCULAR HEMOGLOBIN 32 pg (25-35); MEAN CORPUSCULAR HGB CONC 33 g/dL (31-37); MEAN CORPUSCULAR VOLUME 97 fL (79-100); MONO # 0.5 x10^3/uL (0.0-1.1); MONO % 5 % (0-9); NEUT # 7.5 x10^3uL (1.8-7.7); NEUT % 68 % (31-73); PLATELET COUNT 230 x10^3/uL (140-400); RED BLOOD COUNT 4.08 x10^6/uL (3.50-5.40); RED CELL DISTRIBUTION WIDTH 14.7 % (11.5-14.5)
[2020-02-27 12:22] LABS: CALCIUM 8.7 mg/dL (8.5-10.1); CREATININE 1.1 mg/dL (0.6-1.0); GFR 59.4
[2020-02-27 12:23] LABS: POTASSIUM 4.3 mmol/L (3.5-5.1)
[2020-02-27 12:30] LABS: ALBUMIN 3.6 g/dL (3.4-5.0); ALBUMIN/GLOBULIN RATIO 0.9 (1.0-1.7); MAGNESIUM 2.2 mg/dL (1.8-2.4); TOTAL BILIRUBIN 0.4 mg/dL (0.2-1.0); TOTAL PROTEIN 7.8 g/dL (6.4-8.2)
[2020-02-27 13:01] LABS: BILIRUBIN,URINE NEG (NEG); CLARITY,URINE HAZY; COLOR,URINE YELLOW; GLUCOSE,URINE NEG (NEG); NITRITE,URINE POS (NEG); UROBILINOGEN,URINE 0.2 mg/dL (0.2 mg/dL)
[2020-02-27 13:02] LABS: BACTERIA,URINE MANY /HPF (0-FEW); SQUAMOUS EPITHELIAL CELL,UR OCC /LPF; WBC,URINE TNTC /HPF (0-4)
[2020-02-27 13:07] VITALS: BP 128/77
[2020-02-27] MEDS ORDERED: CEPH500T PO (13:09)
[2020-02-27] MEDS ORDERED: BUTA1TAB23 PO (13:09)
[2020-02-27] MEDS ORDERED: ONDA4TAB12 PO (13:09)
[2020-02-27] MEDS ORDERED: CEPHALEXIN 250 MG CAPSULE PO ONE (13:15)
== END 2020-02-27 13:30 | disposition home or self-care (01) ==
LOC: ER 11:35
DX: N39.0 Urinary tract infection, site not specified (principal); G43.909 Migraine, unspecified, not intractable, without status migrainosus; R19.7 Diarrhea, unspecified; R11.2 Nausea with vomiting, unspecified; J44.9 Chronic obstructive pulmonary disease, unspecified; I10 Essential (primary) hypertension; G89.29 Other chronic pain; F17.210 Nicotine dependence, cigarettes, uncomplicated; Z90.710 Acquired absence of both cervix and uterus
CPT/HCPCS: 36415; 80053; 81001; 83690; 83735; 85025; 85610; 85730; 87077; 87086; 87186; 96361; 96374; 96375; 99284; J1100; J2405; J3490; J7030

== ENCOUNTER 2020-02-28 08:38 | Emergency (ER) | payer OTHER ==
[~2020-02-28] VITALS: Ht 152.4 cm; Wt 78.5 kg
[2020-02-28 08:38] VITALS: BP 127/72
[~2020-02-28 08:38] MED LIST changes: +CEPH500T PO; +ONDA4TAB12 PO
--- NOTE | 2020-02-28 09:36 | RAD ---
EXAM: Head CT without contrast. HISTORY: Headache. TECHNIQUE: Computed tomographic images of the head were obtained without contrast. *One or more of the following individualized dose reduction techniques were utilized for this examination: 1. Automated exposure control. 2. Adjustment of the mA and/or kV according to patient size. 3. Use of iterative reconstruction technique. COMPARISON: 04/14/2019. FINDINGS: There is no acute or subacute extra-axial or intraparenchymal hemorrhage. There is increased density within the inferior right frontal lobe due to bone artifact. There is no mass effect or midline shift. There is no hydrocephalus. There are areas of decreased attenuation within the cerebral white matter, nonspecific and likely related to chronic small vessel disease. There is evidence of right lens surgery and left lens dislocation. The visualized paranasal sinuses are clear. The mastoid air cells are clear. IMPRESSION: No acute intracranial findings. Electronically signed by: Karen Bejarano MD (02/28/2020 9:33 AM) [id number]
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
== END 2020-02-28 10:02 | disposition home or self-care (01) ==
LOC: ER 08:38
DX: R51 Headache (principal); F31.9 Bipolar disorder, unspecified; G89.29 Other chronic pain; I10 Essential (primary) hypertension; F17.210 Nicotine dependence, cigarettes, uncomplicated
CPT/HCPCS: 70450; 99284-25

== ENCOUNTER 2020-03-02 12:17 | Emergency (ER) | payer OTHER ==
[~2020-03-02] VITALS: Ht 152.4 cm; Wt 78.5 kg
[2020-03-02 12:24] VITALS: BP 129/89
== END 2020-03-02 12:45 | disposition left against medical advice (07) ==
LOC: ER 12:17
DX: S80.811A Abrasion, right lower leg, initial encounter (principal); Z53.21 Procedure and treatment not carried out due to patient leaving prior to being seen by health care provider; W01.0XXA Fall on same level from slipping, tripping and stumbling without subsequent striking against object, initial encounter; Y93.89 Activity, other specified; Y92.89 Other specified places as the place of occurrence of the external cause; Y99.8 Other external cause status

== ENCOUNTER 2020-06-22 12:35 | Emergency (ER) | payer OTHER ==
[~2020-06-22] VITALS: Ht 152.4 cm; Wt 78.5 kg
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
[2020-06-22] MEDS ORDERED: METOCLOPRAMIDE HCL 10 MG/2 ML VIAL. IM ONE (13:30)
[2020-06-22] MEDS ORDERED: KETOROLAC 60 MG/2 ML VIAL. IM ONE (13:30)
[2020-06-22] MEDS ORDERED: diphenhydrAMINE 50 MG/ML VIAL IM ONE (13:30)
[2020-06-22 14:42] VITALS: BP 160/98
== END 2020-06-22 15:18 | disposition home or self-care (01) ==
LOC: ER 12:35
DX: G43.909 Migraine, unspecified, not intractable, without status migrainosus (principal); I10 Essential (primary) hypertension; G89.29 Other chronic pain; F17.210 Nicotine dependence, cigarettes, uncomplicated; Z90.49 Acquired absence of other specified parts of digestive tract
CPT/HCPCS: 96372; 99284; J1200; J1885; J2765

== ENCOUNTER 2020-07-18 11:34 | Emergency (ER) | payer OTHER ==
[~2020-07-18] VITALS: Ht 152.4 cm; Wt 78.5 kg
[2020-07-18 11:35] VITALS: BP 160/98
[2020-07-18] MEDS ORDERED: BUTALB/APAP/CAFEIN 50/325/40MG TABLET. PO PRN (12:15)
--- NOTE | 2020-07-18 12:23 | PHYS DOC ---
Past History Past Medical History: Bipolar, Gallstones, Glaucoma, Hypertension, Migraines Additional Past Medical Histor: CHRONIC BACK PAIN Past Surgical History: Cholecystectomy Additional Past Surgical Histo: BACK Smoking: Cigarettes Alcohol Use: None Drug Use: None Adult General Chief Complaint Chief Complaint: MECHANICAL FALL [facility] Patient is a 69-year-old poor historian who presents to the emergency his room stating that she fell down some steps and hit her head on concrete. She denies losing consciousness. She states that she has got a headache. She does have a long history of headaches and this feels similar. She has multiple medication she takes at home for this. She denies any nausea or vomiting. She denies any other injuries. Review of Systems Review of Systems Complete ROS is negative unless otherwise documented in HPI Current Medications Current Medications Current Medications Medications (Trade) Dose Ordered Sig/Shala Start Time Stop Time Status Last Admin Dose Admin Acetaminophen/ Butalbital/ Caffeine (Fioricet) 1 tab 1X PRN 07/18/20 12:15 Allergies Allergies Allergies Coded Allergies Type Severity Reaction Last Updated Verified No Known Drug Allergies 09/23/18 No Physical Exam Physical Exam General: Awake, alert, NAD. Well Nourished, well hydrated. Cooperative HEENT: Atraumatic, EOMI, left cornea clouded, airway patent, moist oral mucosa Neck: Supple, trachea midline Respiratory: CTA bilaterally, normal effort, no wheezing/crackles CV: RRR, no murmur, cap refill <2 GI: Soft, nondistended, nontender, no masses MSK: No obvious deformities Skin: Warm, dry, intact Neuro: A&O x3, speech NL, sensory and motor grossly intact, no focal deficits Psych: Normal affect, normal mood, not suicidal or homicidal EKG EKG [] Radiology/Procedures Radiology/Procedures [] Heart Score Risk Factors: Risk Factors: DM, Current or recent (<one month) smoker, HTN, HLP, family history of CAD, obesity. Risk Scores: Risk Factors: DM, Current or recent (<one month) smoker, HTN, HLP, family history of CAD, obesity. Course & Med Decision Making Course & Med Decision Making Pertinent Labs and Imaging studies reviewed. (See chart for details) Patient is 69-year-old female presents to the emergency room complaining of headache after falling and hitting her head. CT head and cervical spine were or dered due to patient's age. Imaging is unremarkable. Patient will be discharged home will follow up with the primary care physician. Patient's test results and vitals while in the ED were fully reviewed and discussed with the patient. Patient is stable and at this time does not need admission to the hospital. We have discussed strict return precautions and the importance of foll owing up with their Primary Care Physician. Patient stated understanding and was given an opportunity to ask any questions. Patient is in agreement with plan. Dragon Disclaimer Dragon Disclaimer This electronic medical record was generated, in whole or in part, using a voice recognition dictation system. Departure Departure: Impression: Primary Impression: Closed head injury Additional Impression: Headache Disposition: 01 DC HOME SELF CARE/HOMELESS Condition: STABLE Referrals: JESSICA FRAIRE MD (PCP) Patient Instructions: Head Injury, Adult Problem Qualifiers KARLA PADILLA MD Jul 18, 2020 12:23
--- NOTE | 2020-07-18 12:52 | RAD ---
CT head without contrast: Reason for examination: Fell. Comparison is made to previous exam dated 05/29/2020. Axial images were obtained through the brain. No contrast was administered. Ventricular systems are symmetric and not dilated. No midline shift is seen. There is no evidence of intracranial hemorrhage, infarct, mass or edema. There is some generalized cerebral atrophy and some microvascular ischemic changes consistent with patient's advanced age. There is again evidence of lef t lens displacement and postop changes at the right lens. The paranasal sinuses and mastoid air cells are clear. No acute skull abnormality is seen. IMPRESSION: Mild atrophy. No acute intracranial abnormality evident. CT cervical spine without contrast: Helical images were obtained through the cervical spine from skull base through the thoracic apices w ith no contrast administered. Reconstruction was performed in sagittal and coronal planes. The C1 ring is intact. The odontoid process appears to be intact and normally centered between the la teral masses of C1. The cervical vertebral bodies are normally aligned anteriorly and posteriorly. No acute fracture or subluxation is seen. The posterior elements appear to be intact. The intervertebra l discs are fairly well-maintained. There are some mild degenerative changes present. Prevertebral so ft tissues are normal. No significant spinal stenosis is present. IMPRESSION: Mild degenerative changes but no acute abnormality evident in the cervical spine. Exposure: One or more of the following individualized dose reduction techniques were utilized for thi s examination: 1. Automated exposure control 2. Adjustment of the mA and/or kV according to patient size 3. Use of iterative reconstruction technique. Electronically signed by: Cece Crocker MD (07/18/2020 12:45 PM) MINO
== END 2020-07-18 13:24 | disposition home or self-care (01) ==
LOC: ER 11:34
DX: S09.8XXA Other specified injuries of head, initial encounter (principal); G43.909 Migraine, unspecified, not intractable, without status migrainosus; I10 Essential (primary) hypertension; G89.29 Other chronic pain; F17.210 Nicotine dependence, cigarettes, uncomplicated; Z90.49 Acquired absence of other specified parts of digestive tract; Z87.442 Personal history of urinary calculi; Z98.890 Other specified postprocedural states; W10.8XXA Fall (on) (from) other stairs and steps, initial encounter; Y93.89 Activity, other specified; Y92.89 Other specified places as the place of occurrence of the external cause; Y99.8 Other external cause status
CPT/HCPCS: 70450; 72125; 99285

== ENCOUNTER 2020-07-23 09:12 | Emergency (ER) | payer OTHER ==
[~2020-07-23] VITALS: Ht 152.4 cm; Wt 78.5 kg
[2020-07-23] MEDS ORDERED: HALOPERIDOL LACT 5 MG/ML VIAL. ONE (10:03)
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
[2020-07-23] MEDS ORDERED: HALOPERIDOL LACT 5 MG/ML VIAL. IM ONE (10:30)
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
[2020-07-23 11:08] LABS: BASO # 0.1 x10^3/uL (0.0-0.2); BASO % 1 % (0-3); EOS # 0.1 x10^3/uL (0.0-0.7); EOS % 2 % (0-3); HEMATOCRIT 42.5 % (36.0-47.0); HEMOGLOBIN 13.7 g/dL (12.0-15.5); LYMPH # 2.6 x10^3/uL (1.0-4.8); LYMPH % 33 % (24-48); MEAN CORPUSCULAR HEMOGLOBIN 32 pg (25-35); MEAN CORPUSCULAR HGB CONC 32 g/dL (31-37); MEAN CORPUSCULAR VOLUME 99 fL (79-100); MONO # 0.4 x10^3/uL (0.0-1.1); MONO % 6 % (0-9); NEUT # 4.7 x10^3uL (1.8-7.7); NEUT % 59 % (31-73); PLATELET COUNT 227 x10^3/uL (140-400); RED BLOOD COUNT 4.28 x10^6/uL (3.50-5.40); RED CELL DISTRIBUTION WIDTH 13.5 % (11.5-14.5); WHITE BLOOD COUNT 7.9 x10^3/uL (4.0-11.0)
[2020-07-23 11:18] LABS: CALCIUM 8.5 mg/dL (8.5-10.1); CREATININE 1.2 mg/dL (0.6-1.0); GFR 53.7; POTASSIUM 4.1 mmol/L (3.5-5.1)
[2020-07-23 11:23] LABS: ALBUMIN 3.9 g/dL (3.4-5.0); TOTAL BILIRUBIN 0.7 mg/dL (0.2-1.0)
[2020-07-23 11:37] VITALS: BP 95/64
== END 2020-07-23 11:37 | disposition home or self-care (01) ==
LOC: ER 09:12
DX: Z00.00 Encounter for general adult medical examination without abnormal findings (principal); R41.0 Disorientation, unspecified; F31.9 Bipolar disorder, unspecified; I10 Essential (primary) hypertension; G43.909 Migraine, unspecified, not intractable, without status migrainosus; G89.29 Other chronic pain; F17.210 Nicotine dependence, cigarettes, uncomplicated; W51.XXXA Accidental striking against or bumped into by another person, initial encounter; Y93.89 Activity, other specified; Y92.89 Other specified places as the place of occurrence of the external cause; Y99.8 Other external cause status
CPT/HCPCS: 36415; 70450; 70486; 71045; 72125; 72170; 80053; 83690; 84484; 85025; 96372; 99285; J1630; J2060

== ENCOUNTER 2020-08-11 03:54 | Emergency (ER) | payer OTHER ==
[~2020-08-11] VITALS: Ht 152.4 cm; Wt 78.5 kg
[2020-08-11] MEDS ORDERED: DEXAMETHASONE SOD PHOS 10 MG/ML VIAL. IVP ONE (04:30)
[2020-08-11] MEDS ORDERED: MECLIZINE 12.5 MG TABLET. PO ONE (04:30)
[2020-08-11] MEDS ORDERED: IV NORMAL SALINE 1,000ML 1,000 ML IV ONE (04:30)
--- NOTE | 2020-08-11 04:35 | EKG ---
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
[2020-08-11 04:43] LABS: BASO % 0 % (0-3); EOS # 0.2 x10^3/uL (0.0-0.7); EOS % 2 % (0-3); HEMATOCRIT 41.7 % (36.0-47.0); HEMOGLOBIN 13.7 g/dL (12.0-15.5); LYMPH # 2.4 x10^3/uL (1.0-4.8); LYMPH % 23 % (24-48); MEAN CORPUSCULAR HEMOGLOBIN 33 pg (25-35); MEAN CORPUSCULAR HGB CONC 33 g/dL (31-37); MEAN CORPUSCULAR VOLUME 99 fL (79-100); MONO # 0.6 x10^3/uL (0.0-1.1); MONO % 5 % (0-9); NEUT # 7.2 x10^3uL (1.8-7.7); NEUT % 69 % (31-73); PLATELET COUNT 305 x10^3/uL (140-400); RED BLOOD COUNT 4.21 x10^6/uL (3.50-5.40); WHITE BLOOD COUNT 10.3 x10^3/uL (4.0-11.0)
[2020-08-11] MEDS ORDERED: MECL-75 PO (04:52)
[2020-08-11 04:54] LABS: ANION GAP 12 (6-14); BLOOD UREA NITROGEN 23 mg/dL (7-20); BUN/CREATININE RATIO 26 (6-20); CALCIUM 8.7 mg/dL (8.5-10.1); CARBON DIOXIDE 23 mmol/L (21-32); CHLORIDE 111 mmol/L (98-107); CREATININE 0.9 mg/dL (0.6-1.0); GFR 74.9; GLUCOSE 107 mg/dL (70-99); POTASSIUM 3.5 mmol/L (3.5-5.1); SODIUM 146 mmol/L (136-145)
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
[2020-08-11 05:09] LABS: ALBUMIN 3.7 g/dL (3.4-5.0); ALBUMIN/GLOBULIN RATIO 1.2 (1.0-1.7); ALK PHOS 143 U/L (46-116); ALT (SGPT) 82 U/L (14-59); AST (SGOT) 29 U/L (15-37); MAGNESIUM 2.2 mg/dL (1.8-2.4); TOTAL BILIRUBIN 0.5 mg/dL (0.2-1.0); TOTAL PROTEIN 6.9 g/dL (6.4-8.2)
[2020-08-11] MEDS ORDERED: KETOROLAC 15 MG/ML VIAL. IVP ONE (05:45)
[2020-08-11 06:09] VITALS: BP 128/60
[2020-08-11 06:16] LABS: BILIRUBIN,URINE NEG (NEG); CLARITY,URINE HAZY; COLOR,URINE YELLOW; GLUCOSE,URINE NEG (NEG); NITRITE,URINE POS (NEG); RBC,URINE 0 /HPF (0-2); UROBILINOGEN,URINE 0.2 mg/dL (0.2 mg/dL); WBC,URINE >40 /HPF (0-4)
[2020-08-11 06:17] LABS: BACTERIA,URINE MANY /HPF (0-FEW); SQUAMOUS EPITHELIAL CELL,UR MOD /LPF
[2020-08-11] MEDS ORDERED: IV NORMAL SALINE 50ML 50 ML ONE (06:29)
[2020-08-11] MEDS ORDERED: cefTRIAXone SODIUM 1 GM VIAL ONE (06:29)
[2020-08-11] MEDS ORDERED: CEPH500T PO (06:29)
== END 2020-08-11 07:10 | disposition home or self-care (01) ==
LOC: ER 03:54
DX: N30.00 Acute cystitis without hematuria (principal); R42 Dizziness and giddiness; G43.909 Migraine, unspecified, not intractable, without status migrainosus; F31.9 Bipolar disorder, unspecified; I10 Essential (primary) hypertension; G89.29 Other chronic pain; F17.210 Nicotine dependence, cigarettes, uncomplicated
CPT/HCPCS: 36415; 80053; 81001; 82553; 83735; 84484; 85025; 87077; 87086; 87186; 93005; 96361; 96365; 96375; 99284; J0696; J1100; J1885; J7030

== ENCOUNTER 2020-08-22 17:07 | Emergency (ER) | payer OTHER ==
[~2020-08-22] VITALS: Ht 152.4 cm; Wt 78.5 kg
[~2020-08-22 17:07] MED LIST changes: +MECL-75 PO
[2020-08-22] MEDS: IV RINGERS SOLUTION,LACTATED 1,000 ML IV ONE (18:45)
[2020-08-22 19:25] LABS: BASO # 0.1 x10^3/uL (0.0-0.2); BASO % 1 % (0-3); EOS # 0.2 x10^3/uL (0.0-0.7); EOS % 2 % (0-3); HEMATOCRIT 38.1 % (36.0-47.0); HEMOGLOBIN 12.5 g/dL (12.0-15.5); LYMPH # 3.1 x10^3/uL (1.0-4.8); LYMPH % 36 % (24-48); MEAN CORPUSCULAR HEMOGLOBIN 33 pg (25-35); MEAN CORPUSCULAR HGB CONC 33 g/dL (31-37); MEAN CORPUSCULAR VOLUME 100 fL (79-100); MONO # 0.7 x10^3/uL (0.0-1.1); MONO % 8 % (0-9); NEUT # 4.5 x10^3uL (1.8-7.7); NEUT % 53 % (31-73); PLATELET COUNT 204 x10^3/uL (140-400); RED CELL DISTRIBUTION WIDTH 14.5 % (11.5-14.5); WHITE BLOOD COUNT 8.6 x10^3/uL (4.0-11.0)
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
--- NOTE | 2020-08-22 19:28 | EKG ---
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
[2020-08-22 19:33] LABS: CALCIUM 8.3 mg/dL (8.5-10.1); CREATININE 1.1 mg/dL (0.6-1.0); GFR 59.4; POTASSIUM 3.6 mmol/L (3.5-5.1)
[2020-08-22 19:42] LABS: ALBUMIN 3.3 g/dL (3.4-5.0); ALBUMIN/GLOBULIN RATIO 0.9 (1.0-1.7); MAGNESIUM 2.4 mg/dL (1.8-2.4); TOTAL BILIRUBIN 0.2 mg/dL (0.2-1.0); TOTAL PROTEIN 6.9 g/dL (6.4-8.2)
--- NOTE | 2020-08-22 19:57 | PHYS DOC ---
Past History Past Medical History: Bipolar, Gallstones, Glaucoma, Hypertension, Migraines Additional Past Medical Histor: CHRONIC BACK PAIN Past Surgical History: Cholecystectomy Additional Past Surgical Histo: BACK Smoking: Cigarettes Alcohol Use: None Drug Use: None Adult General Chief Complaint Chief Complaint: HEADACHE HPI HPI Patient is a 69-year-old female who presents with a chief complaint of lightheadedness and fall. States she was walking out of her apartment earlier this morning, and as she was walking out felt lightheaded and fell to the ground. Not sure if she lost consciousness or not. Before she got lightheaded she denies any headache, changes in vision, diaphoresis, nausea, vomiting, numbness/weakness/tingling. States she was helped up and has been able to walk since. States this had happened to her before. Denies any current chest pain, shortness of breath, abdominal pain, nausea, hematuria, blood in the stool. Does endorse mild dysuria, stating that she had a urinary tract infection a couple weeks ago and took all her antibiotics but feels like it is still there. States she like to try another course of antibiotics before following up with her doctor. Denies any recent travel, illnesses, fevers, known ill contacts, Covid/flu symptoms. Review of Systems Review of Systems Review of systems otherwise unremarkable except noted in HPI Current Medications Current Medications Current Medications Medications (Trade) Dose Ordered Sig/Shala Start Time Stop Time Status Last Admin Dose Admin Lactated Ringer's 1,000 ml @ 1,000 mls/hr 1X ONCE 08/22/20 18:45 08/22/20 19:44 08/22/20 18:45 1,000 MLS/HR Allergies Allergies Allergies Coded Allergies Type Severity Reaction Last Updated Verified No Known Drug Allergies 09/23/18 No Physical Exam Physical Exam Constitutional: Well developed, well nourished, no acute distress, non-toxic appearance. [] HENT: Normocephalic, atraumatic, bilateral external ears normal, oropharynx moist, no oral exudates, nose normal. [] Eyes: conjunctiva normal, no discharge. [] Neck: Normal range of motion, no tenderness, supple, no stridor. [] Cardiovascular:Heart rate regular rhythm, no murmur [] Lungs & Thorax: Bilateral breath sounds clear to auscultation [] Abdomen: soft, no tenderness, no masses, no pulsatile masses. [] Skin: Warm, dry, no erythema, no rash. [] Back: No tenderness, Extremities: No tenderness, no cyanosis, no clubbing, ROM intact, no edema. [] Neurologic: Alert and oriented X 3, normal motor function, normal sensory function, no focal deficits noted. [] Psychologic: Affect normal, judgement normal, mood normal. [] Current Patient Data Vital Signs Vital Signs Date Time Temp Pulse Resp B/P (MAP) Pulse Ox O2 Delivery O2 Flow Rate FiO2 08/22/20 17:11 97.8 79 16 109/74 (86) 97 Room Air Lab Results Laboratory Tests Test 08/22/20 18:53 White Blood Count 8.6 x10^3/uL (4.0-11.0) Red Blood Count 3.80 x10^6/uL (3.50-5.40) Hemoglobin 12.5 g/dL (12.0-15.5) Hematocrit 38.1 % (36.0-47.0) Mean Corpuscular Volume 100 fL (79-100) Mean Corpuscular Hemoglobin 33 pg (25-35) Mean Corpuscular Hemoglobin Concent 33 g/dL (31-37) Red Cell Distribution Width 14.5 % (11.5-14.5) Platelet Count 204 x10^3/uL (140-400) Neutrophils (%) (Auto) 53 % (31-73) Lymphocytes (%) (Auto) 36 % (24-48) Monocytes (%) (Auto) 8 % (0-9) Eosinophils (%) (Auto) 2 % (0-3) Basophils (%) (Auto) 1 % (0-3) Neutrophils # (Auto) 4.5 x10^3uL (1.8-7.7) Lymphocytes # (Auto) 3.1 x10^3/uL (1.0-4.8) Monocytes # (Auto) 0.7 x10^3/uL (0.0-1.1) Eosinophils # (Auto) 0.2 x10^3/uL (0.0-0.7) Basophils # (Auto) 0.1 x10^3/uL (0.0-0.2) Sodium Level 144 mmol/L (136-145) Potassium Level 3.6 mmol/L (3.5-5.1) Chloride Level 107 mmol/L (98-107) Carbon Dioxide Level 27 mmol/L (21-32) Anion Gap 10 (6-14) Blood Urea Nitrogen 16 mg/dL (7-20) Creatinine 1.1 mg/dL (0.6-1.0) H Estimated GFR (Cockcroft-Gault) 59.4 BUN/Creatinine Ratio 15 (6-20) Glucose Level 107 mg/dL (70-99) H Calcium Level 8.3 mg/dL (8.5-10.1) L Magnesium Level 2.4 mg/dL (1.8-2.4) Total Bilirubin 0.2 mg/dL (0.2-1.0) Aspartate Amino Transferase (AST) 19 U/L (15-37) Alanine Aminotransferase (ALT) 39 U/L (14-59) Alkaline Phosphatase 109 U/L (46-116) Troponin I Quantitative < 0.017 ng/mL (0-0.055) Total Protein 6.9 g/dL (6.4-8.2) Albumin 3.3 g/dL (3.4-5.0) L Albumin/Globulin Ratio 0.9 (1.0-1.7) L EKG EKG Rate of 69, QRS of 80, QTc of 426, no STEMI. Patient with first-degree block and probable left anterior fascicular block. [] Radiology/Procedures Radiology/Procedures []HISTORY: Syncope and fall. COMPARISON: CT head July 23, 2020. FINDINGS: No intracranial hemorrhage, mass, hydrocephalus, extra-axial fluid collections or infarction. Mild streak artifact from the skull base across the dionisio may decrease sensitivity to detect pathology at this region. There is a density within the posterior left ocular globe stable to prior exam likely a dislocated lens. Mastoids and bones are unremarkable. IMPRESSION: No acute abnormality. Stable exam as described above. Electronically signed by: Omid Sanchez MD (08/22/2020 7:24 PM) [facility] Heart Score C/O Chest Pain: No Risk Factors: Risk Factors: DM, Current or recent (<one month) smoker, HTN, HLP, family history of CAD, obesity. Risk Scores: Risk Factors: DM, Current or recent (<one month) smoker, HTN, HLP, family history of CAD, obesity. Course & Med Decision Making Course & Med Decision Making Patient is a 69-year-old female who presents with a chief complaint of lightheadedness and fall at home Vital signs not concerning. Physical exam noted above. EKG noted above with no STEMI. Troponin normal. CT of the head normal. No focal neurologic deficits. Range of motion normal. Neurovascular exam intact. Patient alert and oriented, cooperative and pleasant. Given Tylenol 3 for chronic back pain. Patient states she took a Tylenol 3 this morning and has a prescription. Laboratory analysis not concerning. Urinalysis with some hematuria and leukocyte esterase but no bacteria. Given patient's urinary symptoms and previous urinary tract infection was started on Keflex. On reasses sment patient stated she was feeling well and was ready to be discharged home. Advised to call primary care physician first thing in the morning to set up a follow-up. Gave strict return precautions to the ED. Patient grateful, verbalized understanding and agreed with plan of discharge. [] Dragon Disclaimer Dragon Disclaimer This electronic medical record was generated, in whole or in part, using a voice recognition dictation system. Departure Departure: Disposition: 01 DC HOME SELF CARE/HOMELESS Condition: GOOD Referrals: JESSICA FRAIRE MD (PCP) Patient Instructions: Syncope, [id number], Urinary Tract Infection, [id number] Additional Instructions: Please read all the attached information. Please take your antibiotics as prescribed. As discussed please call your primary care physician first thing in the morning to update on your ED visit and schedule an appointment for follow- up this week. Please come back to the emergency department immediately with new or concerning symptoms as discussed. Please be sure to eat at least 3 nutritious meals a day and drink plenty of fluids. Scripts Cephalexin (CEPHALEXIN) 500 Mg Capsule 1 CAP PO TID for UTI for 5 Days, #15 CAP Prov: RACHEL JOSE MD 08/22/20 RACHEL JOSE MD Aug 22, 2020 19:57
[2020-08-22 20:17] VITALS: BP 100/64
[2020-08-22 21:04] LABS: BILIRUBIN,URINE NEG (NEG); CLARITY,URINE CLOUDY; COLOR,URINE COLORLESS; GLUCOSE,URINE NEG (NEG)
[2020-08-22 21:05] LABS: BACTERIA,URINE 0 /HPF (0-FEW); NITRITE,URINE NEG (NEG); UROBILINOGEN,URINE 0.2 mg/dL (0.2 mg/dL); WBC,URINE TNTC /HPF (0-4)
[2020-08-22] MEDS: IBUPROFEN 400 MG TABLET. PO ONE (21:13)
[2020-08-22] MEDS: ACETAMINOPHEN/CODEINE 300/30MG TABLET PO ONE (21:13)
[2020-08-22] MEDS ORDERED: CEPH500C PO (21:24)
[2020-08-22] MEDS ORDERED: CEPHALEXIN 250 MG CAPSULE ONE (21:26)
[2020-08-22] MEDS: CEPHALEXIN 250 MG CAPSULE PO ONE (21:28)
== END 2020-08-22 21:30 | disposition home or self-care (01) ==
LOC: ER 17:07
DX: R42 Dizziness and giddiness (principal); I10 Essential (primary) hypertension; G43.909 Migraine, unspecified, not intractable, without status migrainosus; G89.29 Other chronic pain; F17.210 Nicotine dependence, cigarettes, uncomplicated; Z90.49 Acquired absence of other specified parts of digestive tract; W18.39XA Other fall on same level, initial encounter; Y93.01 Activity, walking, marching and hiking; Y92.89 Other specified places as the place of occurrence of the external cause; Y99.8 Other external cause status
CPT/HCPCS: 36415; 70450; 80053; 81001; 83735; 84484; 85025; 87086; 93005; 96360; 99285; J7120

== ENCOUNTER 2020-08-24 14:47 | Emergency (ER) | payer OTHER ==
[~2020-08-24] VITALS: Ht 152.4 cm; Wt 78.5 kg
[~2020-08-24 14:47] MED LIST changes: +CEPH500C PO
[2020-08-24 15:04] VITALS: BP 128/77
--- NOTE | 2020-08-24 17:52 | PHYS DOC ---
Past History Past Medical History: Bipolar, Gallstones, Glaucoma, Hypertension, Migraines Additional Past Medical Histor: CHRONIC BACK PAIN (MELLY PERRY APRN) Past Surgical History: Cholecystectomy Additional Past Surgical Histo: BACK (MELLY PERRY APRN) Smoking: Cigarettes Alcohol Use: None Drug Use: None (MELLY PERRY APRN) General Adult EDM: Chief Complaint: HEADACHE HPI: HPI: Patient is a 69-year-old female who presents with dizziness, headache, drowsiness. States "my neighbor is smoking crack or some type of drug and its getting into my apartment and Im so tired and dizzy". Patient's friend states she went over to get home from her apartment and take her to dinner so she did have to stay at home and once they got there she tripped and fell on the curb and hit her head. Patient's friend states that she lost consciousness. Patient denies being on any blood thinners. (MELLY PERRY APRN) Review of Systems: Review of Systems: Constitutional: Denies fever or chills Eyes: Denies change in visual acuity HENT: Denies nasal congestion or sore throat Respiratory: Denies cough or shortness of breath Cardiovascular: Denies chest pain or edema GI: Denies abdominal pain, nausea, vomiting, bloody stools or diarrhea : Denies dysuria Musculoskeletal: Denies back pain or joint pain Integument: Denies rash Neurologic: Reports headache, dizziness, denies focal weakness or sensory changes Endocrine: Denies polyuria or polydipsia Lymphatic: Denies swollen glands Psychiatric: Denies depression or anxiety (MELLY PERRY APRN) Allergies: Allergies: Allergies Coded Allergies Type Severity Reaction Last Updated Verified No Known Drug Allergies 09/23/18 No (MELLY PERRY APRN) Physical Exam: PE: Constitutional: Well developed, well nourished, no acute distress, non-toxic appearance. [] HENT: Normocephalic, atraumatic, bilateral external ears normal, oropharynx moist, no oral exudates, nose normal. [] Eyes: PERRLA, EOMI, conjunctiva normal, no discharge. [] Neck: Normal range of motion, no tenderness, supple, no stridor. [] Cardiovascular:Heart rate regular rhythm, no murmur [] Lungs & Thorax: Bilateral breath sounds clear to auscultation [] Abdomen: Bowel sounds normal, soft, no tenderness, no masses, no pulsatile masses. [] Skin: Warm, dry, no erythema, no rash. [] Back: No tenderness, no CVA tenderness. [] Extremities: No tenderness, no cyanosis, no clubbing, ROM intact, no edema. [] Neurologic: Alert and oriented X 3, normal motor function, normal sensory function, no focal deficits noted. [] Psychologic: Affect normal, judgement normal, mood normal. [] (MELLY PERRY APRN) Current Patient Data: Vital Signs: Vital Signs Date Time Temp Pulse Resp B/P (MAP) Pulse Ox O2 Delivery O2 Flow Rate FiO2 08/24/20 15:04 97.6 69 16 128/77 (94) 97 Room Air (MELLY PERRY APRN) EKG: EKG: [] (MELLY PERRY APRN) Radiology/Procedures: Radiology/Procedures: []AP chest. HISTORY: Fall, dizziness, headache AP view was taken of the chest. Heart is normal in size. The aorta is tortuous. There is no effusion. There are no acute infiltrates. There has been no definite change compared to the recent study IMPRESSION: 1. No acute infiltrates. Electronically signed by: Raul George MD (08/24/2020 6:31 PM) [id number] CT HEAD/BRAIN WO History: Reason: Fall, dizziness, headache / Spl. Instructions: / History: Comparison: August 22, 2020 Technique: Noncontrast CT imaging was performed of the head. Exposure: One or more of the following individualized dose reduction techniques were utilized for this examination: 1. Automated exposure control 2. Adjustment of the mA and/or kV according to patient size 3. Use of iterative reconstruction technique. Findings: No intracranial hemorrhage. No mass effect. No hydrocephalus. Mild brain parenchymal volume loss. Hyperdensity within the posterior left globe, unchanged. Imaged paranasal sinuses and mastoid air cells are clear. No acute calvarial fracture. Impression: 1. No acute intracranial abnormality. 2. Chronic left lens dislocation, unchanged. Electronically signed by: Iker Dill DO (08/24/2020 6:36 PM) [facility] (MELLY PERRY APRN) Heart Score: C/O Chest Pain: No Risk Factors: Risk Factors: DM, Current or recent (<one month) smoker, HTN, HLP, family history of CAD, obesity. Risk Scores: Score 0 - 3: 2.5% MACE over next 6 weeks - Discharge Home Score 4 - 6: 20.3% MACE over next 6 weeks - Admit for Clinical Observation Score 7 - 10: 72.7% MACE over next 6 weeks - Early Invasive Strategies (MELLY PERRY APRN) Course & Med Decision Making: Course & Med Decision Making Pertinent Labs and Imaging studies reviewed. (See chart for details) [] CT of head was negative for any acute abnormalities. Chest x-ray was negative. All lab work unremarkable. Patient left before CT of neck and cervical spine could be completed. When I went to go update the patient she had left the emergency room without letting staff know she was leaving. (MELLY PERRY APRN) Dragon Disclaimer: Dragon Disclaimer: This electronic medical record was generated, in whole or in part, using a voice recognition dictation system. (MELLY PERRY APRN) Departure Departure: Impression: Primary Impression: Fall Qualified Codes: W19.XXXA - Unspecified fall, initial encounter Disposition: 07 AMA/ELOPED/LWBS Condition: LEFT WITHOUT BEING SEEN Referrals: JESSICA FRAIRE MD (PCP) Attending Signature Attending Signature I have participated in the care of this patient and I have reviewed and agree with all pertinent clinical information above including history, exam, and recommendations. (HEMANT MACIEL MD) Attending Signature I have participated in the care of this patient and I have reviewed and agree with all pertinent clinical information above including history, exam, and recommendations. (MELLY PERRY APRN) Attending Signature Attending Signature I have participated in the care of this patient and I have reviewed and agree with all pertinent clinical information above including history, exam, and recommendations. (HEMANT MACIEL MD) MELLY PERRY APRN Aug 24, 2020 17:52 HEMANT MACIEL MD Aug 24, 2020 19:00
[2020-08-24 18:23] LABS: BASO # 0.1 x10^3/uL (0.0-0.2); BASO % 1 % (0-3); EOS # 0.1 x10^3/uL (0.0-0.7); EOS % 1 % (0-3); HEMATOCRIT 43.2 % (36.0-47.0); HEMOGLOBIN 13.9 g/dL (12.0-15.5); LYMPH # 3.2 x10^3/uL (1.0-4.8); LYMPH % 34 % (24-48); MEAN CORPUSCULAR HEMOGLOBIN 33 pg (25-35); MEAN CORPUSCULAR HGB CONC 32 g/dL (31-37); MEAN CORPUSCULAR VOLUME 102 fL (79-100); MONO # 0.7 x10^3/uL (0.0-1.1); MONO % 7 % (0-9); NEUT # 5.4 x10^3uL (1.8-7.7); NEUT % 57 % (31-73); PLATELET COUNT 215 x10^3/uL (140-400); RED BLOOD COUNT 4.26 x10^6/uL (3.50-5.40); RED CELL DISTRIBUTION WIDTH 14.4 % (11.5-14.5); WHITE BLOOD COUNT 9.5 x10^3/uL (4.0-11.0)
[2020-08-24 18:29] LABS: CALCIUM 9.1 mg/dL (8.5-10.1); GFR 66.3; POTASSIUM 3.8 mmol/L (3.5-5.1)
--- NOTE | 2020-08-24 18:33 | RAD ---
AP chest. HISTORY: Fall, dizziness, headache AP view was taken of the chest. Heart is normal in size. The aorta is tortuous. There is no effusion. There are no acute infiltrates. There has been no definite change compared to the recent study IMPRESSION: 1. No acute infiltrates. Electronically signed by: Raul George MD (08/24/2020 6:31 PM) [id number]
--- NOTE | 2020-08-24 18:38 | RAD ---
CT HEAD/BRAIN WO History: Reason: Fall, dizziness, headache / Spl. Instructions: / History: Comparison: August 22, 2020 Technique: Noncontrast CT imaging was performed of the head. Exposure: One or more of the following individualized dose reduction techniques were utilized for thi s examination: 1. Automated exposure control 2. Adjustment of the mA and/or kV according to patient size 3. Use of iterative reconstruction technique. Findings: No intracranial hemorrhage. No mass effect. No hydrocephalus. Mild brain parenchymal volume loss. Hyperdensity within the posterior left globe, unchanged. Imaged paranasal sinuses and mastoid air qiana ls are clear. No acute calvarial fracture. Impression: 1. No acute intracranial abnormality. 2. Chronic left lens dislocation, unchanged. Electronically signed by: Iker Dill DO (08/24/2020 6:36 PM) [facility]
[2020-08-24 18:40] LABS: ALBUMIN 3.5 g/dL (3.4-5.0); ALBUMIN/GLOBULIN RATIO 0.8 (1.0-1.7); TOTAL BILIRUBIN 0.6 mg/dL (0.2-1.0); TOTAL PROTEIN 7.8 g/dL (6.4-8.2)
--- NOTE | 2020-08-25 03:58 | EKG ---
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
== END 2020-08-24 18:40 | disposition left against medical advice (07) ==
LOC: ER 14:47
DX: R42 Dizziness and giddiness (principal); R40.0 Somnolence; G43.909 Migraine, unspecified, not intractable, without status migrainosus; F31.9 Bipolar disorder, unspecified; I10 Essential (primary) hypertension; G89.29 Other chronic pain; F17.210 Nicotine dependence, cigarettes, uncomplicated; Z90.49 Acquired absence of other specified parts of digestive tract; W10.1XXA Fall (on)(from) sidewalk curb, initial encounter; Y93.89 Activity, other specified; Y92.89 Other specified places as the place of occurrence of the external cause; Y99.8 Other external cause status
CPT/HCPCS: 36415; 70450; 71045; 80053; 85025; 93005; 99285

== ENCOUNTER 2020-08-25 21:35 | Emergency (ER) | payer OTHER ==
[~2020-08-25] VITALS: Ht 152.4 cm; Wt 78.5 kg
[2020-08-25 21:42] VITALS: BP 143/54
[2020-08-25] MEDS: IBUPROFEN 600 MG TABLET. PO ONE (21:55)
[2020-08-25] MEDS: ACETAMINOPHEN/CODEINE 300/30MG TABLET PO ONE (21:55)
[2020-08-25] MEDS: diphenhydrAMINE HCL 25 MG CAPSULE PO ONE (21:55)
--- NOTE | 2020-08-25 22:09 | PHYS DOC ---
Past History Past Medical History: Bipolar, Gallstones, Glaucoma, Hypertension, Migraines Additional Past Medical Histor: CHRONIC BACK PAIN Past Surgical History: Cholecystectomy Additional Past Surgical Histo: BACK Smoking: Cigarettes Alcohol Use: None Drug Use: None Adult General Chief Complaint Chief Complaint: HEADACHE HPI HPI Patient is a 69-year-old female with a past medical history of migraines, bipolar, and anxiety who presents with a headache. Patient states she has a neighbor in the apartment next to her that smokes drugs daily and believes it is crack cocaine. States that when he started smoking it she can smell it in her apartment and it gives her headache. States she usually has Tylenol threes at home that her doctor gives her but she is out and has an appointment tomorrow for medication refill. States that currently she has a whole head headache, 2 out of 10, dull and achy in nature there is come and go over the course of the day. Denies any changes in vision, numbness/weakness/tingling, trouble ambu lating, chest pain, shortness of breath, abdominal pain, nausea, vomiting, diarrhea, dysuria, hematuria or blood in the stool. Denies any alcohol or drug use. States she otherwise feels fine. States she did call the police today on her neighbor when she smelled him smoking crack. States that she came in to get her Tylenol 3 because that the only thing that helps with her headache until she sees her doctor tomorrow. Denies any recent travel, illnesses, fevers, Covid/flu symptoms. Review of Systems Review of Systems Review of systems otherwise unremarkable except noted in HPI Current Medications Current Medications Current Medications Medications (Trade) Dose Ordered Sig/Shala Start Time Stop Time Status Last Admin Dose Admin Acetaminophen/ Codeine Phosphate (Tylenol #3) 1 tab 1X ONCE 08/25/20 22:00 08/25/20 22:01 UNV Diphenhydramine HCl (Benadryl) 25 mg 1X ONCE 08/25/20 22:00 08/25/20 22:01 UNV Ibuprofen (Motrin) 600 mg 1X ONCE 08/25/20 22:00 08/25/20 22:01 UNV Allergies Allergies Allergies Coded Allergies Type Severity Reaction Last Updated Verified No Known Drug Allergies 09/23/18 No Physical Exam Physical Exam Constitutional: Well developed, well nourished, no acute distress, non-toxic appearance. [] HENT: Normocephalic, atraumatic, bilateral external ears normal, oropharynx moist, no oral exudates, nose normal. [] Eyes: PERRLA, EOMI, conjunctiva normal, no discharge. [] Neck: Normal range of motion, no tenderness, supple, no stridor. [] Cardiovascular:Heart rate regular rhythm, no murmur [] Lungs & Thorax: Bilateral breath sounds clear to auscultation [] Abdomen: soft, no tenderness, no masses, no pulsatile masses. [] Skin: Warm, dry, no erythema, no rash. [] Back: No tenderness, Extremities: No tenderness, no cyanosis, no clubbing, ROM intact, no edema. [] Neurologic: Alert and oriented X 3, normal motor function, normal sensory function, no focal deficits noted. [] Psychologic: Affect normal, judgement normal, mood normal. [] Current Patient Data Vital Signs Vital Signs Date Time Temp Pulse Resp B/P (MAP) Pulse Ox O2 Delivery O2 Flow Rate FiO2 08/25/20 21:42 98.2 61 18 143/54 (83) 61 Room Air EKG EKG EKG with a rate of 70, QRS of 80, QTc of 472, no STEMI. Appears to have a first-degree block as well as a left anterior fascicular block noted on EKG [] Radiology/Procedures Radiology/Procedures [] Heart Score C/O Chest Pain: No Risk Factors: Risk Factors: DM, Current or recent (<one month) smoker, HTN, HLP, family history of CAD, obesity. Risk Scores: Risk Factors: DM, Current or recent (<one month) smoker, HTN, HLP, family history of CAD, obesity. Course & Med Decision Making Course & Med Decision Making Patient is a 69-year-old female who presents to the emergency department with complaints about her neighbor smoking crack and given her headache and out of pain medication at home. Patient has had a couple of ER visits recently with the same complaints of her neighbor, and being out of her medications and had head CTs as well as blood work done which came up normal. Vital signs are normal. Physical exam noted above. Patient alert and oriented no acute distress. No focal neurologic deficits. Headache almost gone here in the ED. Given home dose of Tylenol 3 and ibuprofen. EKG not concerning for STEMI and noted above. Patient stated she just needed something for her headache so she can go home and sleep and see her doctor in the morning to get all of her medication refills. Discussed all findings with patient. Advised to keep her primary care appointment in the morning to discuss all of her ED visits, and medication needs. Patient very grateful, verbalized understanding and asked if she could just be discharged home right after she gets her medication. Gave strict return precautions to the ED. [] Dragon Disclaimer Dragon Disclaimer This electronic medical record was generated, in whole or in part, using a voice recognition dictation system. Departure Departure: Impression: Primary Impression: Headache Disposition: 01 DC HOME SELF CARE/HOMELESS Condition: GOOD Referrals: JESSICA FRAIRE MD (PCP) Patient Instructions: General Headache Without Cause, [id number] Additional Instructions: Please read all the attached information. Please keep your primary care physician appointment first thing in the morning to discuss your recent ED visits, issues with your neighbor and further medication management. Please come back to the emergency department immediately with new or concerning symptoms as discussed and explained. RACHEL JOSE MD Aug 25, 2020 22:08
--- NOTE | 2020-08-25 22:13 | EKG ---
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
== END 2020-08-25 22:10 | disposition home or self-care (01) ==
LOC: ER 21:35
DX: G43.909 Migraine, unspecified, not intractable, without status migrainosus (principal); F31.9 Bipolar disorder, unspecified; F41.9 Anxiety disorder, unspecified; I10 Essential (primary) hypertension; G89.29 Other chronic pain; F17.210 Nicotine dependence, cigarettes, uncomplicated; Z90.49 Acquired absence of other specified parts of digestive tract
CPT/HCPCS: 93005; 99284; Q0163; 99285-25

== ENCOUNTER 2020-10-20 17:09 | Emergency (ER) | payer OTHER ==
[~2020-10-20] VITALS: Ht 152.4 cm; Wt 78.5 kg
--- NOTE | 2020-10-20 18:49 | PHYS DOC ---
Past History Past Medical History: Bipolar, Depression, Gallstones, Glaucoma, Hypertension, Migraines Additional Past Medical Histor: CHRONIC BACK PAIN Past Surgical History: Cholecystectomy Additional Past Surgical Histo: BACK Smoking: Cigarettes Alcohol Use: None Drug Use: None Adult General Chief Complaint Chief Complaint: DEPRESSION HPI HPI Patient is a 69-year-old female with a past medical history significant for bipolar, anxiety, and depression who presents with a chief complaint of depression and transient thoughts of feeling that she would be better off . States that she has had a stressful life and over the last several months just feels stressed out and depressed. States that she has had transient thoughts of thinking that she would be better off , but does not actually want to be and has had no suicidal ideations and/or suicidal plans. Denies any homicidal ideation and any hallucinations. States she has talked to her primary care physician a little bit about this but not in great detail. States she is taking all of her medications as prescribed. Denies any recent traumas, travel, fevers, illnesses, known ill contacts, chest pain, shortness of breath, abdominal pain, nausea, vomiting. Denies any numbness/weakness/tingling. Review of Systems Review of Systems Review of systems otherwise unremarkable except noted in HPI Allergies Allergies Allergies Coded Allergies Type Severity Reaction Last Updated Verified No Known Drug Allergies 09/23/18 No Physical Exam Physical Exam Constitutional: Well developed, well nourished, no acute distress, non-toxic appearance. [] HENT: Normocephalic, atraumatic, Eyes:conjunctiva normal, no discharge. [] Neck: Normal range of motion, Cardiovascular:Heart rate regular rhythm, no murmur [] Lungs & Thorax: No respiratory distress Abdomen: no tenderness, Skin: Warm, dry, Extremities: No tenderness, ROM intact, no edema. [] Neurologic: Alert and oriented X 3, normal motor function, normal sensory function, no focal deficits noted. [] Psychologic: Affect normal, judgement normal, does appear depressed. Denies suicidal ideations or plan. Denies homicidal ideation. Denies hallucinations. [] Current Patient Data Vital Signs Vital Signs Date Time Temp Pulse Resp B/P (MAP) Pulse Ox O2 Delivery O2 Flow Rate FiO2 10/20/20 17:10 99.0 70 20 110/68 (82) 99 EKG EKG [] Radiology/Procedures Radiology/Procedures [] Heart Score C/O Chest Pain: No Risk Factors: Risk Factors: DM, Current or recent (<one month) smoker, HTN, HLP, family history of CAD, obesity. Risk Scores: Risk Factors: DM, Current or recent (<one month) smoker, HTN, HLP, family history of CAD, obesity. Course & Med Decision Making Course & Med Decision Making Patient is a 69-year-old female who presents with depression and transient thoughts of thinking she would be better off but no suicidal ideation or plans Vital signs not concerning. Physical exam noted above. PAT team evaluated and felt patient was not a safety risk to herself or anyone else and was probably depressed and lonely. PAT steamboat captain worked up a safety plan for her, got her hotel room for the night and has a plan in place with patient's son to bring her to [place] with him in a day or 2. Discussed all this with patient who is happy with this plan. Gave strict return precautions to the ED. Patient very grateful, verbalized understanding and agreed with plan of discharge. [] Dragon Disclaimer Dragon Disclaimer This electronic medical record was generated, in whole or in part, using a voice recognition dictation system. Departure Departure: Impression: Primary Impression: Depression Disposition: 01 HOME / SELF CARE / HOMELESS Condition: GOOD Referrals: JESSICA FRAIRE MD (PCP) Patient Instructions: Depression, Adult, Suicidal Feelings, How to Help Yourself Additional Instructions: Please read all of the attached information very carefully. Please go over your safety plan that was given to you by the psychiatric steamboat captain and follow all recommendations. Please be sure to get a hold of your son and set up your transition to [place] as soon as you can as discussed. Please contact your primary care physician first thing in the morning to update on your ED visit and safety plan as well as plan to move. Please come back to the emergency department with new or concerning symptoms as discussed. RACHEL JOSE MD October 20, 2020 18:49
[2020-10-20 20:03] VITALS: BP 156/93
== END 2020-10-20 20:03 | disposition home or self-care (01) ==
LOC: ER 17:09
DX: F32.9 Major depressive disorder, single episode, unspecified (principal); F41.9 Anxiety disorder, unspecified; I10 Essential (primary) hypertension; G43.909 Migraine, unspecified, not intractable, without status migrainosus; G89.29 Other chronic pain; F17.210 Nicotine dependence, cigarettes, uncomplicated
CPT/HCPCS: 99283

== ENCOUNTER 2020-10-29 06:31 | Emergency (ER) | payer OTHER ==
[~2020-10-29] VITALS: Ht 152.4 cm; Wt 75.9 kg
[2020-10-29] MEDS ORDERED: IPRATRPIUM/ALBUTEROL 0.5/2.5MG 3 ML NEBU. NEB ONE (06:45)
[2020-10-29] MEDS ORDERED: methylPREDNISolone SOD SUCC PF 125 MG/2 ML VIAL. IV ONE (06:45)
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
--- NOTE | 2020-10-29 06:58 | RAD ---
EXAM: CHEST ONE VIEW. HISTORY: Shortness of breath. COMPARISON: None. FINDINGS: A frontal view of the chest is obtained. Mild perihilar and basilar interstitial opacities are unchanged. There is no pneumothorax or pleural effusion. The heart is not enlarged. There are atherosclerotic calcifications of the aorta. IMPRESSION: 1. Mild perihilar and basilar interstitial opacities appear chronic. Correlate for interstitial lung disease. Electronically signed by: Joe Pascual MD (10/29/2020 6:55 AM) [facility]
[2020-10-29] MEDS ORDERED: KETOROLAC 30 MG/ML VIAL. IVP ONE (07:00)
[2020-10-29] MEDS ORDERED: ALBUTEROL SULFATE 8GM INHALER. INH ONE (07:30)
[2020-10-29] MEDS ORDERED: FLUT1DIS IH (07:36)
[2020-10-29] MEDS ORDERED: PRED-220 PO (07:36)
[2020-10-29] MEDS ORDERED: ALBU2.5V8 IH (07:36)
[2020-10-29 07:37] LABS: BASO # 0.1 x10^3/uL (0.0-0.2); BASO % 1 % (0-3); EOS # 0.2 x10^3/uL (0.0-0.7); EOS % 2 % (0-3); HEMATOCRIT 36.3 % (36.0-47.0); LYMPH # 2.4 x10^3/uL (1.0-4.8); LYMPH % 27 % (24-48); MEAN CORPUSCULAR HEMOGLOBIN 33 pg (25-35); MEAN CORPUSCULAR HGB CONC 33 g/dL (31-37); MEAN CORPUSCULAR VOLUME 99 fL (79-100); MONO # 0.9 x10^3/uL (0.0-1.1); MONO % 10 % (0-9); NEUT # 5.2 x10^3uL (1.8-7.7); NEUT % 59 % (31-73); PLATELET COUNT 270 x10^3/uL (140-400); RED BLOOD COUNT 3.69 x10^6/uL (3.50-5.40); RED CELL DISTRIBUTION WIDTH 14.1 % (11.5-14.5); WHITE BLOOD COUNT 8.7 x10^3/uL (4.0-11.0)
[2020-10-29 07:46] LABS: CALCIUM 9.1 mg/dL (8.5-10.1); CREATININE 0.9 mg/dL (0.6-1.0); GFR 74.7; POTASSIUM 4.3 mmol/L (3.5-5.1)
[2020-10-29 07:50] VITALS: BP 117/65
[2020-10-29 07:53] LABS: ALBUMIN 3.1 g/dL (3.4-5.0); ALBUMIN/GLOBULIN RATIO 0.8 (1.0-1.7); TOTAL BILIRUBIN 0.2 mg/dL (0.2-1.0); TOTAL PROTEIN 6.8 g/dL (6.4-8.2)
== END 2020-10-29 07:50 | disposition home or self-care (01) ==
LOC: ER 06:31
DX: J44.1 Chronic obstructive pulmonary disease with (acute) exacerbation (principal); I10 Essential (primary) hypertension; F17.210 Nicotine dependence, cigarettes, uncomplicated; Z90.49 Acquired absence of other specified parts of digestive tract
CPT/HCPCS: 36415; 71045; 80053; 85025; 94640; 96374; 96375; 99284; J1885; J2930

== ENCOUNTER 2021-01-23 12:48 | Emergency (ER) | payer OTHER, MEDICAID ==
[~2021-01-23] VITALS: Ht 152.4 cm; Wt 75.9 kg
[~2021-01-23 12:48] MED LIST changes: +ALBU2.5V8 IH; +FLUT1DIS IH; +PRED-220 PO
[2021-01-23 12:50] VITALS: BP 129/81
--- NOTE | 2021-01-23 13:41 | EKG ---
[address] [address] Test Date: 2021-01-23 Test Time: 13:25:21 Pat Name: JOSSIE PAZ Department: Room: Gender: F Billing Representative: BERTHA : 1950 Requested By: MELLY PERRY Order Number: [id number] Reading MD: Measurements Intervals [place] Rate: 70 P: 30 ID: [id number] QRS: -39 QRSD: 80 T: 26 QT: 426 QTc: 463 Interpretive Statements SINUS RHYTHM PROLONGED ID INTERVAL ABNORMAL LEFT AXIS DEVIATION R-S TRANSITION ZONE IN V LEADS DISPLACED TO THE LEFT LEFT ANTERIOR FASCICULAR BLOCK ABNORMAL ECG RI6.02 No previous ECG available for comparison
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
[2021-01-23 13:59] LABS: BASO % 0 % (0-3); EOS # 0.2 x10^3/uL (0.0-0.7); EOS % 2 % (0-3); HEMATOCRIT 41.3 % (36.0-47.0); HEMOGLOBIN 13.8 g/dL (12.0-15.5); LYMPH # 3.4 x10^3/uL (1.0-4.8); LYMPH % 39 % (24-48); MEAN CORPUSCULAR HEMOGLOBIN 33 pg (25-35); MEAN CORPUSCULAR HGB CONC 33 g/dL (31-37); MEAN CORPUSCULAR VOLUME 98 fL (79-100); MONO # 0.7 x10^3/uL (0.0-1.1); MONO % 8 % (0-9); NEUT # 4.5 x10^3uL (1.8-7.7); NEUT % 51 % (31-73); PLATELET COUNT 226 x10^3/uL (140-400); RED BLOOD COUNT 4.21 x10^6/uL (3.50-5.40); RED CELL DISTRIBUTION WIDTH 13.3 % (11.5-14.5); WHITE BLOOD COUNT 8.8 x10^3/uL (4.0-11.0)
[2021-01-23 14:05] LABS: CALCIUM 8.5 mg/dL (8.5-10.1); CREATININE 1.1 mg/dL (0.6-1.0); GFR 59.2; POTASSIUM 3.7 mmol/L (3.5-5.1)
[2021-01-23 14:29] LABS: AMPHETAMINE/METHAMPHETAMINE NEG (NEG); BARBITURATES POS (NEG); BENZODIAZEPINES NEG (NEG); CANNABINOIDS NEG (NEG); COCAINE NEG (NEG); METHADONE NEG (NEG); OPIATES POS (NEG); PHENCYCLIDINE NEG (NEG)
[2021-01-23 14:32] LABS: BILIRUBIN,URINE NEG (NEG); CLARITY,URINE CLOUDY; COLOR,URINE YELLOW; GLUCOSE,URINE NEG (NEG); NITRITE,URINE POS (NEG); UROBILINOGEN,URINE 0.2 mg/dL (0.2 mg/dL)
[2021-01-23 14:33] LABS: BACTERIA,URINE MOD /HPF (0-FEW); RBC,URINE RARE /HPF (0-2); WBC,URINE >40 /HPF (0-4)
== END 2021-01-23 17:58 | disposition home or self-care (01) ==
LOC: ER 12:48
DX: R45.851 Suicidal ideations (principal); F31.9 Bipolar disorder, unspecified; I10 Essential (primary) hypertension; F17.210 Nicotine dependence, cigarettes, uncomplicated; Z90.49 Acquired absence of other specified parts of digestive tract
CPT/HCPCS: 36415; 80048; 80307; 81001; 85025; 87077; 87086; 87186; 93005; 99285-25